=== PATIENT | male | born 1935 | race Caucasian/White ===

== ENCOUNTER 2017-05-10 04:55 | Inpatient (IN) | payer BC ==
--- NOTE | 2017-05-10 05:09 | PDOC ---
History of Present Illness - General Chief Complaint: Irregular Heart Beat Stated Complaint: IRREGULAR HEART BEAT Time Seen by Provider: 05/10/17 05:02 History Source: Patient - History of Present Illness Initial Comments: 05/10/17 05:28 81-year-old male with history of hypertension, A. fib complaining of irregular heartbeat at home yesterday lasting up to 15 minutes. Patient reports feeling dizzy and slightly nauseous at the time of the event. Patient noted similar symptoms this morning which prompted him to come to the emergency department. Patient is currently on aspirin and Plavix.Patient denies chest pain abdominal pain headache at this time. Past History - Past Medical History Allergies/Adverse Reactions: Allergies Allergy/AdvReac Type Severity Reaction Status Date / Time No Known Allergies Allergy Verified 05/10/17 05:11 Home Medications: Ambulatory Orders Clopidogrel Bisulfate [Plavix -] 75 mg PO DAILY 04/10/15 Glyburide/Metformin HCl [Glyburide-Metformin 5-500 mg] 1 each PO DAILY 05/10/17 Lisinopril/Hydrochlorothiazide [Lisinopril-Hctz 20-12.5 mg Tab] 1 each PO DAILY 05/10/17 Metoprolol Succinate [Toprol Xl] 50 mg PO DAILY 05/10/17 Sitagliptin Phosphate [Januvia] 25 mg PO DAILY 05/10/17 Anemia: No Asthma: No Cancer: Yes (PROSTATE CA '03 - SEED IMPLANT) Cardiac Disorders: Yes (A-fib) CVA: No COPD: No CHF: No Dementia: No Diabetes: Yes (NIDDM) GI Disorders: No Disorders: No HTN: Yes Hypercholesterolemia: No Liver Disease: No Seizures: No Thyroid Disease: No - Surgical History Abdominal Surgery: No Appendectomy: Yes Cardiac Surgery: Yes (CARDIAC CATH; ABLATION) Cholecystectomy: No Lung Surgery: No Neurologic Surgery: No - Immunization History Immunization Up to Date: No - Psycho/Social/Smoking Cessation Hx Anxiety: No Suicidal Ideation: No Smoking History: Never smoked Have you smoked in the past 12 months: No Hx Alcohol Use: Yes (WINE DAILY) Drug/Substance Use Hx: No Substance Use Type: None Hx Substance Use Treatment: No Cardiac Specific PMH - Complaint Specific PMHX Pacemaker: No Review of Systems - Review of Systems Able to Perform ROS?: Yes Is the patient limited Hebrew proficient: No HEENTM: No: Symptoms Reported, See HPI, Eye Pain, Blurred Vision, Tearing, Recent change in vision, Double Vision, Cataracts, Ear Pain, Ocular Prothesis, Ear Discharge, Nose Pain, Nose Congestion, Tinnitus, Nose Bleeding, Hearing Loss , Throat Pain, Throat Swelling, Mouth Pain, Dental Problems, Difficulty Swallowing, Mouth Swelling, Other Respiratory: No: Symptoms reported, See HPI, Cough, Orthopnea, Shortness of Breath, SOB with Exertion, SOB at Rest, Stridor, Wheezing, Productive cough, Hemoptysis, Other Cardiac (ROS): Yes: Irregular Heart Rate, Lightheadedness. No: Symptoms Reported, See HPI, Chest Pain, Edema, Palpitations, Syncope, Chest Tightness, Other ABD/GI: Yes: Nausea Musculoskeletal: No: Symptoms Reported, See HPI, Back Pain, Gout, Joint Pain, Joint Swelling, Muscle Pain, Muscle Weakness, Neck Pain, Joint Stiffness, Other Integumentary: No: Symptoms Reported, See HPI, Bruising, Change in Color, Change in Hair/Nails, Dryness, Erythema, Flushing, Lesions, Lumps, Pallor, Pruritus, Rash, Sweating, Other Neurological: Yes: Dizziness *Physical Exam - Vital Signs Last Vital Signs Temp Pulse Resp BP Pulse Ox 98.0 F 59 L 18 131/72 98 05/12/17 02:13 05/12/17 02:13 05/12/17 02:05/12/17 02:05/11/17 21:00 - Physical Exam General Appearance: Yes: Appropriately Dressed Respiratory/Chest: positive: Lungs Clear, Normal Breath Sounds Cardiovascular: positive: Regular Rhythm, Regular Rate, S1, S2. negative: Edema , Murmur Gastrointestinal/Abdominal: positive: Normal Bowel Sounds, Soft Musculoskeletal: positive: Normal Inspection Extremity: positive: Normal Capillary Refill, Normal Inspection, Normal Range of Motion Integumentary: positive: Normal Color, Dry, Warm Neurologic: positive: Fully Oriented, Alert, Normal Mood/Affect Heart Score/ECG Review - History History: Moderately suspicious - Electrocardiogram EKG: Non specific repolarization disturbance - Age Age: >/= 65 - Risk Factors Risk Factors Heart Score: Yes Hx Hypercholesterolemia, Yes Hx Hypertension, Yes Hx Diabetes Based on the list above the patient has:: >/=3 risk factors or Hx atherosclerotic disease - ECG Intrepretation Rhythm: Regular Rhythm Comment:: 05/10/17 05:32 sinus rhythm wfirst degree AV block: [address] abnormality ED Treatment Course - LABORATORY CBC & Chemistry Diagram: 05/11/17 05:35 05/11/17 21:45 - ADDITIONAL ORDERS Additional order review: 05/10/17 05:30 RBC 4.52 MCV 91.9 MCHC 34.1 RDW 13.8 MPV 6.7 L Neutrophils % 72.1 D Lymphocytes % 11.6 D Monocytes % 10.8 H Eosinophils % 4.4 Basophils % 1.1 - RADIOLOGY Radiology Studies Ordered: Category Date Time Status CHEST PA & LAT [RAD] Stat Radiology 05/10/17 05:11 Completed 05/10/17 05:34 - Medications Given in the ED: ED Medications Discontinued Medications Generic Name Dose Route Start Last Admin Trade Name Freq PRN Reason Stop Dose Admin Aspirin 162 mg 05/10/17 05:11 05/10/17 05:53 Asa - PO 05/10/17 05:12 162 mg ONCE ONE Administration Clopidogrel Bisulfate 75 mg 05/10/17 09:36 05/11/17 10:24 Plavix - PO 05/10/17 09:37 Not Given ONCE ONE Clopidogrel Bisulfate 75 mg 05/10/17 10:00 05/10/17 10:55 Plavix - PO 75 mg DAILY LAMONT Administration Sodium Chloride 1,000 mls @ 1,000 mls/hr 05/10/17 06:43 05/10/17 06:52 Normal Saline - IV 05/10/17 07:42 1,000 mls/hr ASDIR STA Administration Lisinopril 20 mg 05/10/17 09:36 05/11/17 10:24 Prinivil PO 05/10/17 09:37 Not Given ONCE ONE Magnesium Oxide 400 mg 05/10/17 06:44 05/10/17 06:53 Mag-Ox - PO 05/10/17 06:45 400 mg ONCE ONE Administration Magnesium Sulfate 2 gm 05/10/17 16:30 05/10/17 17:26 Magnesium Sulfate IVPB 05/10/17 16:31 2 gm ONCE ONE Administration Metoprolol Succinate 50 mg 05/10/17 10:00 05/10/17 10:55 Toprol Xl - PO 50 mg DAILY LAMONT Administration Progress Note - Progress Note Progress Note: A: irregular heart rate P: CBC CMP Cardiac EKG chest xray aspirin Medical Decision Making - Medical Decision Making 05/10/17 06:51 Patient to be admitted to telemetry for further management of care. Sodium: 127 BUN elevated. will give IVF. patient signed out to Dr. snyder for further management of care. *DC/Admit/Observation/Transfer Diagnosis at time of Disposition: Hyponatremia, Intermittent palpitations - Discharge Dispostion Admit: Yes - Referrals
[2017-05-10] MEDS ORDERED: ASPIRIN 81 MG CHEWABLE TABLETS PO ONE (05:11)
--- NOTE | 2017-05-10 05:43 | PDOC ---
*Physical Exam - Vital Signs Last Vital Signs Temp Pulse Resp BP Pulse Ox 98.7 F 85 14 164/91 97 05/10/17 05:11 05/10/17 05:11 05/10/17 05:11 05/10/17 05:11 05/10/17 05:11 ED Treatment Course - LABORATORY CBC & Chemistry Diagram: 05/10/17 05:30 05/10/17 13:30 Medical Decision Making - Medical Decision Making 05/10/17 05:43 agree with care from VIOLETTA Palumbo *DC/Admit/Observation/Transfer Diagnosis at time of Disposition: Hyponatremia, Intermittent palpitations
[2017-05-10 05:44] LABS: BASOPHIL 1.1 % (0-2.0); EOSINOPHIL 4.4 % (0-4.5); MCH 31.4 pg (25.7-33.7); MCHC 34.1 g/dl (32.0-35.9); MEAN CELL VOLUME 91.9 fl (80-96); MEAN PLT VOLUME 6.7 fl (7.5-11.1); NEUTROPHILS 72.1 % (42.8-82.8); PLATELET COUNT 259 K/MM3 (134-434); RDW 13.8 % (11.9-15.9); WHITE BLOOD COUNT 7.6 K/mm3 (4.0-10.0)
[2017-05-10] MEDS ORDERED: ASPIRIN 81 MG CHEWABLE TABLETS ONE (05:48)
[2017-05-10 05:54] LABS: INR 1.09 (0.82-1.09)
[2017-05-10 06:04] LABS: ANION GAP 9 (8-16); BILIRUBIN,TOTAL 0.6 mg/dL (0.2-1.0); CALCIUM 9.1 mg/dL (8.5-10.1); CO2 26 mmol/L (21-32); GLUCOSE,RANDOM 208 mg/dL (74-106); MAGNESIUM 1.7 mg/dL (1.8-2.4); SGOT/AST 12 U/L (15-37); SGPT/ALT 20 U/L (12-78); TOT PROT 7.1 g/dl (6.4-8.2)
[2017-05-10 06:07] LABS: ALK PHOS 92 U/L (45-117); CPK 143 IU/L (39-308); TROPONIN I < 0.02 ng/ml (0.00-0.05)
[2017-05-10 06:23] VITALS: BMI 23.3
[2017-05-10] MEDS ORDERED: SODIUM CHLORIDE 1,000 ML IV STA (06:43)
[2017-05-10] MEDS ORDERED: MAGNESIUM OXIDE 400 MG TABLET (FP) PO ONE (06:44)
[2017-05-10] MEDS ORDERED: MAGNESIUM OXIDE 400 MG TABLET (FP) ONE (06:45)
--- NOTE | 2017-05-10 09:35 | CON.CARD ---
Consult Consult Specialty:: Cardiology Reason for Consultation:: palpitations - History of Present Illness History of Present Illness: 81-year-old male with history of hypertension, A. fib complaining of irregular heartbeat at home yesterday lasting up to 15 minutes. Patient reports feeling dizzy and slightly nauseous at the time of the event. Patient noted similar symptoms this morning which prompted him to come to the emergency department. Patient is currently on aspirin and Plavix.Patient denies chest pain abdominal pain headache at this time. - History Source History Provided By: Patient, Medical Record Limitations to Obtaining History: No Limitations - Past Medical History Cardio/Vascular: Yes: AFIB (did not tolerate AC in the past - as per patient AC did not agree with him.), CAD (s/p pci stent 7 years ago at [facility]), HTN Rheumatology: Yes: Other (arthritis) Endocrine: Yes: Diabetes Mellitus - Past Surgical History Past Surgical History: Yes: Hernia Repair - Alcohol/Substance Use Hx Alcohol Use: Yes (WINE DAILY) History of Substance Use: reports: None - Smoking History Smoking history: Never smoked Have you smoked in the past 12 months: No - Social History 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 [employer] Home Medications - Allergies Allergies/Adverse Reactions: Allergies Allergy/AdvReac Type Severity Reaction Status Date / Time No Known Allergies Allergy Verified 05/10/17 05:11 - Home Medications Home Medications: Ambulatory Orders Clopidogrel Bisulfate [Plavix -] 75 mg PO DAILY 04/10/15 Glyburide/Metformin HCl [Glyburide-Metformin 5-500 mg] 1 each PO DAILY 05/10/17 Lisinopril/Hydrochlorothiazide [Lisinopril-Hctz 20-12.5 mg Tab] 1 each PO DAILY 05/10/17 Metoprolol Succinate [Toprol Xl] 50 mg PO DAILY 05/10/17 Sitagliptin Phosphate [Januvia] 25 mg PO DAILY 05/10/17 Family Disease History - Family Disease History Family Disease History: Diabetes: Mother, Heart Disease: Mother, Other: Father ( old age) Review of Systems - Review of Systems Constitutional: reports: No Symptoms Eyes: reports: No Symptoms HENT: reports: No Symptoms Neck: reports: No Symptoms Cardiovascular: reports: Palpitations Gastrointestinal: reports: No Symptoms Genitourinary: reports: No Symptoms Breasts: reports: No Symptoms Reported Musculoskeletal: reports: No Symptoms Integumentary: reports: No Symptoms Neurological: reports: No Symptoms Endocrine: reports: No Symptoms Hematology/Lymphatic: reports: No Symptoms Psychiatric: reports: No Symptoms Vital Signs: Vital Signs Temperature 98.7 F 05/10/17 05:11 Pulse Rate 60 05/10/17 07:44 Respiratory Rate 18 05/10/17 07:44 Blood Pressure 138/86 05/10/17 07:44 O2 Sat by Pulse Oximetry (%) 99 05/10/17 07:44 Constitutional: Yes: Well Nourished, No Distress, Calm Eyes: Yes: WNL, Conjunctiva Clear, EOM Intact HENT: Yes: WNL, Atraumatic, Normocephalic Neck: Yes: WNL, Supple, Trachea Midline Respiratory: Yes: WNL, Regular, CTA Bilaterally Gastrointestinal: Yes: WNL, Normal Bowel Sounds Renal/: Yes: WNL Cardiovascular: Yes: WNL, Regular Rate and Rhythm Musculoskeletal: Yes: WNL Extremities: Yes: WNL Integumentary: Yes: WNL Neurological: Yes: WNL, Alert, Oriented ...Motor Strength: WNL Psychiatric: Yes: WNL, Alert, Oriented - Other Data Labs, Other Data: INR, PTT INR 1.09 (0.82-1.09) 05/10/17 05:30 Laboratory Tests 05/10/17 05/10/17 05/10/17 05:30 05:30 05:30 WBC 7.6 RBC 4.52 Hgb 14.2 D Hct 41.5 MCV 91.9 MCH 31.4 MCHC 34.1 RDW 13.8 Plt Count 259 MPV 6.7 L Neutrophils % 72.1 D Lymphocytes % 11.6 D Monocytes % 10.8 H Eosinophils % 4.4 Basophils % 1.1 INR 1.09 Sodium 126 L Potassium 4.6 Chloride 91 L Carbon Dioxide 26 Anion Gap 9 BUN 26 H D Creatinine 1.0 Creat Clearance w eGFR > 60 Random Glucose 208 H D Calcium 9.1 Magnesium 1.7 L Total Bilirubin 0.6 AST 12 L ALT 20 Alkaline Phosphatase 92 D Creatine Kinase 143 Troponin I < 0.02 Total Protein 7.1 Albumin 4.0 Imaging - Results Chest X-ray: Image Reviewed (no i/e) EKG: Image Reviewed (sr ldea) Problem List - Problems (1) Hyponatremia Code(s): E87.1 - HYPO-OSMOLALITY AND HYPONATREMIA (2) Intermittent palpitations Code(s): R00.2 - PALPITATIONS (3) RIAZ (acute kidney injury) Code(s): N17.9 - ACUTE KIDNEY FAILURE, UNSPECIFIED (4) Atrial fibrillation Code(s): I48.91 - UNSPECIFIED ATRIAL FIBRILLATION (5) Closed head injury Code(s): S09.90XA - UNSPECIFIED INJURY OF HEAD, INITIAL ENCOUNTER Qualifiers: Encounter type: initial encounter Qualified Code(s): S09.90XA - Unspecified injury of head, initial encounter (6) Encounter for staple removal Code(s): Z48.02 - ENCOUNTER FOR REMOVAL OF SUTURES (7) Fall Code(s): W19.XXXA - UNSPECIFIED FALL, INITIAL ENCOUNTER Qualifiers: Encounter type: initial encounter Qualified Code(s): W19.XXXA - Unspecified fall, initial encounter (8) HTN (hypertension) Code(s): I10 - ESSENTIAL (PRIMARY) HYPERTENSION (9) Low back pain Code(s): M54.5 - LOW BACK PAIN Qualifiers: Chronicity: acute Back pain laterality: midline (10) Palpitations Code(s): R00.2 - PALPITATIONS (11) Polycythemia Code(s): D75.1 - SECONDARY POLYCYTHEMIA Assessment/Plan palpitations paf refusing ac -understands risks of cva ashd hyponatremia htn hld plan telemetry hyponatremia w/u mibi st when stable keep ldl below 70
[2017-05-10] MEDS ORDERED: LISINOPRIL 20 MG TABLET (FP) PO ONE (09:36)
[2017-05-10] MEDS ORDERED: CLOPIDOGREL BISULFATE 75 MG TABLET (FP) PO ONE (09:36)
[2017-05-10] MEDS ORDERED: CLOPIDOGREL BISULFATE 75 MG TABLET (FP) PO SCH (10:00)
[2017-05-10] MEDS ORDERED: METOPROLOL SUCCINATE 50 MG TAB.SR.24H (FP) PO SCH (10:00)
--- NOTE | 2017-05-10 10:37 | EKG ---
Test Reason : Blood Pressure : / mmHG Vent. Rate : 086 BPM Atrial Rate : 086 BPM P-R Int : 212 ms QRS Dur : 096 ms QT Int : 366 ms P-R-T Axes : 030 -32 056 degrees QTc Int : 437 ms SINUS RHYTHM WITH 1ST DEGREE A-V BLOCK LEFT AXIS DEVIATION NONSPECIFIC ST ABNORMALITY ABNORMAL ECG WHEN COMPARED WITH ECG OF 10-APR-2015 18:04, SINUS RHYTHM HAS REPLACED ATRIAL FLUTTER Confirmed by SHARYN SAMS, YONG ([id number]) on 05/10/2017 10:36:58 AM Referred By: Confirmed By:YONG COLES MD
[2017-05-10] MEDS: LISINOPRIL 20 MG TABLET (FP) PO SCH (10:55)
[2017-05-10] MEDS ORDERED: INSULIN REGULAR HUMAN 100 UNITS/ML *VIAL ONE (10:56)
[2017-05-10] MEDS: INSULIN SLIDING SCALE (NOVOLOG) 1 VIAL SQ SCH ×3 (11:07→20:59)
[2017-05-10] MEDS: SODIUM CHLORIDE 1,000 ML IV SCH (11:07)
--- NOTE | 2017-05-10 11:30 | HP ---
CHIEF COMPLAINT: Irregular heart beat PCP: Dr Perez Lino Carpenter Helper Maintenance: Dr Berman HISTORY OF PRESENT ILLNESS: Patient is an 81 year old male with PMHx of afib s/p cardiac ablation, and stent placement, HTN, DM presenting with a 2 day history of irregular heart beat. Patient has been non compliant on ASA , prescribed in combination with plavix because he has petechiael hemorrhages and easy bruising. Patient reported intermittent heart beats 2 days ago that he described as 10 beats with interrupted pauses, that lasted for about 15mins which reversed to regular after he took two doses of ASA 81mg. A day ago, he had similar symptoms, which lasted for longer periods for which he took a total of 5 tablets of ASA. There is no associated cough, no SOB, no chest pain. No history of syncope, fall or seizures. The irregular heartbeats are associated with "giving out" of of his legs. No facial droop, loss of vision or weakness of any side of his body. Patient presented this am because of fear of deterioration of the symptoms. ER course was notable for: (1)EKG-Showed sinus rythm and 1st degree heart block (2)CXR- Showed no evidence of active pulmonary disease (3)BMP, P, Mg- Showed hyponatremia at 126, Mg-1.7, for which he received a bolus of IVF N/saline and Mg oxide 400 mg PO stat 4) Patient also received ASA 81 mg PO stat, 5) Troponins on admission were negative- Recent Travel: PAST MEDICAL HISTORY: HTN, Afib, DM, Prostate cancer PAST SURGICAL HISTORY:S/p Prostate cancer seed implant 2002, R inguinal hernia repair with mesh- 2009, cardiac catheter with ablation and stent Social History: Smoking: No Alcohol: Wine Drugs: Family History: Allergies No Known Allergies Allergy (Verified 05/10/17 05:11) HOME MEDICATIONS: Home Medications Medication Instructions Recorded Clopidogrel Bisulfate [Plavix -] 75 mg PO DAILY 04/10/15 Glyburide/Metformin HCl 1 each PO DAILY 05/10/17 [Glyburide-Metformin 5-500 mg] Lisinopril/Hydrochlorothiazide 1 each PO DAILY 05/10/17 [Lisinopril-Hctz 20-12.5 mg Tab] Metoprolol Succinate [Toprol Xl] 50 mg PO DAILY 05/10/17 Sitagliptin Phosphate [Januvia] 25 mg PO DAILY 05/10/17 REVIEW OF SYSTEMS CONSTITUTIONAL: No fever, chills, diaphoresis, generalized weakness, malaise, loss of appetite, weight change HEENT: No rhinorrhea, nasal congestion, throat pain, throat swelling, difficulty swallowing, mouth swelling, ear pain, eye pain, visual changes CARDIOVASCULAR: No chest pain, syncope, palpitations, patient has irregular heart rate, no lightheadedness, no peripheral edema RESPIRATORY: Absent: No cough, shortness of breath, dyspnea with exertion, orthopnea, wheezing, stridor, hemoptysis GASTROINTESTINAL: No abdominal pain, abdomen has always been full, no nausea, vomiting, diarrhea, constipation, melena, hematochezia GENITOURINARY: No dysuria, frequency, urgency, hesitancy, hematuria, flank pain, genital pain MUSCULOSKELETAL: Patient complains of a trigger finger, no joint swelling, back spasms on the right, neck pain SKIN: Absent: rash, itching, pallor HEMATOLOGIC/IMMUNOLOGIC: Patient reports easy bleeding- petechiae when he takes ASA with his plavix, easy bruising- has bruise over abdomen ENDOCRINE: Absent: unexplained weight gain, unexplained weight loss, heat intolerance, cold intolerance NEUROLOGIC: No headache, focal weakness or paresthesias, dizziness, unsteady gait, seizure, mental status changes, bladder or bowel incontinence PSYCHIATRIC: Absent: anxiety, depression, suicidal or homicidal ideation, hallucinations. PHYSICAL EXAMINATION Vital Signs - 24 hr 05/10/17 05/10/17 07:42 07:44 Pulse Rate [ 60 Apical] Respiratory 18 Rate Blood Pressure 138/86 [Right Arm] O2 Sat by Pulse 99 99 Oximetry (%) GENERAL: Awake, alert, and fully oriented, in no acute respiratory distress. HEAD: Normal with no signs of trauma. EYES: Pupils equal, round and reactive to light, extraocular movements intact, sclera anicteric, conjunctiva clear. No lid lag. EARS, NOSE, THROAT: Ears normal, nares patent, moist mucous membranes. NECK: supple, no JVD. LUNGS: Breath sounds equal, clear to auscultation bilaterally. No wheezes, and no crackles. No accessory muscle use. HEART: Irregular rate and rhythm, normal S1 and S2 without murmur, rub or gallop. ABDOMEN: Soft, nontender, full, R hypochondrial scar, hemangiomas scattered over abdomen, normoactive bowel sounds, nontympanitic, organs difficult to palpate. MUSCULOSKELETAL: Normal range of motion at all joints. No bony deformities or tenderness. No CVA tenderness. UPPER EXTREMITIES: 2+ pulses, warm, well-perfused. No cyanosis. No clubbing. No peripheral edema. LOWER EXTREMITIES: 2+ pulses, warm, well-perfused. No calf tenderness. No peripheral edema. NEUROLOGICAL: Oriented X3, absent facial droop. Muscle strength 5/5 globally, normal tone, reflexes 2+. Normal speech. Gait not observed PSYCHIATRIC: Cooperative. Good eye contact. Appropriate mood and affect. 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 Mobile, soft, not attached to overlying skin or underlying structures. Warm, dry, hemangiomas over abdomen and some skin tags. ASSESSMENT/PLAN: # Afib: Past hx of afib with ablation and stent placement, non-complaint on ASA Admit to telemetry Continous cardiac monitoring Continue plavix 75mg dly ASA 81 mg dly Metoprolol 50mg PO XL EKG ECHO, TSH BMP, Mg, P CBC troponins UA/ Urine culture LFT #Hyponatremia Na -126 at ER Received 1 bolus of N/saline Continue Nsaline @75mls/hr Repeated BMP at 2.00pm showed Na -129 Restrict free oral fluids to 1L a day Repeat Na at 10.00pm and reevaluate #Hypomagnesemia Received Magnesium Oxide 400mg PO stat Repeat Mg- still 1.7 Ivpb Mg So4 2g given stat Repeat Mg at 10.00pm and reevaluate # DM Diabetic diet ISS # HTN Cont lisinopril 20mg dly Hold HCTZ- due to Hyponatremia Cont Metoprolol 50 mg XL dly Visit type - Emergency Visit Emergency Visit: No - New Patient This patient is new to me today: Yes Date on this admission: 05/10/17 - Critical Care Critical Care patient: No
--- NOTE | 2017-05-10 12:09 | PN ---
Teaching Attending Note Name of Resident: Paula Lugo ATTENDING PHYSICIAN STATEMENT I saw and evaluated the patient. I reviewed the resident's note and discussed the case with the resident. I agree with the resident's findings and plan as documented. SUBJECTIVE: Patient is comfortable, denies any chest pain, came in since feeling irregular heart beat. He has hx of Afib where he had an ablation procedure. OBJECTIVE: Vital Signs Temperature 98.7 F 05/10/17 05:11 Pulse Rate 60 05/10/17 07:44 Respiratory Rate 18 05/10/17 07:44 Blood Pressure 138/86 05/10/17 07:44 O2 Sat by Pulse Oximetry (%) 99 05/10/17 07:44 CBCD WBC 7.6 K/mm3 (4.0-10.0) 05/10/17 05:30 RBC 4.52 M/mm3 (4.00-5.60) 05/10/17 05:30 Hgb 14.2 GM/dL (11.7-16.9) D 05/10/17 05:30 Hct 41.5 % (35.4-49) 05/10/17 05:30 MCV 91.9 fl (80-96) 05/10/17 05:30 MCHC 34.1 g/dl (32.0-35.9) 05/10/17 05:30 RDW 13.8 % (11.9-15.9) 05/10/17 05:30 Plt Count 259 K/MM3 (134-434) 05/10/17 05:30 MPV 6.7 fl (7.5-11.1) L 05/10/17 05:30 CMP Sodium 126 mmol/L (136-145) L 05/10/17 05:30 Potassium 4.6 mmol/L (3.5-5.1) 05/10/17 05:30 Chloride 91 mmol/L (98-107) L 05/10/17 05:30 Carbon Dioxide 26 mmol/L (21-32) 05/10/17 05:30 Anion Gap 9 (8-16) 05/10/17 05:30 BUN 26 mg/dL (7-18) H D 05/10/17 05:30 Creatinine 1.0 mg/dL (0.7-1.3) 05/10/17 05:30 Creat Clearance w eGFR > 60 (>60) 05/10/17 05:30 Random Glucose 208 mg/dL (74-106) H D 05/10/17 05:30 Calcium 9.1 mg/dL (8.5-10.1) 05/10/17 05:30 Total Bilirubin 0.6 mg/dL (0.2-1.0) 05/10/17 05:30 AST 12 U/L (15-37) L 05/10/17 05:30 ALT 20 U/L (12-78) 05/10/17 05:30 Alkaline Phosphatase 92 U/L (45-117) D 05/10/17 05:30 Total Protein 7.1 g/dl (6.4-8.2) 05/10/17 05:30 Albumin 4.0 g/dl (3.4-5.0) 05/10/17 05:30 CARDIAC ENZYMES Creatine Kinase 143 IU/L (39-308) 05/10/17 05:30 Troponin I < 0.02 ng/ml (0.00-0.05) 05/10/17 05:30 Current Medications Generic Name Dose Route Start Last Admin Trade Name Freq PRN Reason Stop Dose Admin Clopidogrel Bisulfate 75 mg 05/11/17 10:00 Plavix - PO DAILY [facility] Sodium Chloride 1,000 mls @ 75 mls/hr 05/10/17 10:45 05/10/17 11:07 Normal Saline - IV 75 mls/hr ASDIR LAMONT Administration Insulin Aspart 1 vial 05/10/17 11:00 05/10/17 11:07 Novolog Vial Sliding Scale - SQ 2 units ACHS LAMONT Administration Protocol Lisinopril 20 mg 05/10/17 10:00 05/10/17 10:55 Prinivil PO 20 mg DAILY LAMONT Administration Metoprolol Succinate 50 mg 05/10/17 10:00 05/10/17 10:55 Toprol Xl - PO 50 mg DAILY LAMONT Administration Home Medications Medication Instructions Recorded Clopidogrel Bisulfate [Plavix -] 75 mg PO DAILY 04/10/15 Glyburide/Metformin HCl 1 each PO DAILY 05/10/17 [Glyburide-Metformin 5-500 mg] Lisinopril/Hydrochlorothiazide 1 each PO DAILY 05/10/17 [Lisinopril-Hctz 20-12.5 mg Tab] Metoprolol Succinate [Toprol Xl] 50 mg PO DAILY 05/10/17 Sitagliptin Phosphate [Januvia] 25 mg PO DAILY 05/10/17 PE: nice gentleman, AAOx3 CVS: S1S2 positive, irregularly irregular chest CTA bl Abdomen; large abdomen, positive for BS ext: no edema, no swelling or cyanosis, pulses are positive ASSESSMENT AND PLAN: Patient is an 81 year old male with PMHx of afib s/p cardiac ablation, and stent placement around 7 years ago on Plavix and Aspirin( on and off) since gets bleeding due to aspirin and gets tinnitis , HTN, DM presenting with a 2 day history of irregular heart beat. #Acute Hyponatremia with level of 126 , will hold his Hctz on IVF 0.9NS # Afib s/p Ablation rate controlled now will place the patient in Tele for further monitoring, cardio consult , will check TSH, Ft4, also CE q6 x 3 Ekg in am # Hx of CAd continue Plavix and 81mg aspirin #Hypomagnesemia replete with one iv mag rider # T2 DM, diabetic diet, ISS # HTN continue lisinopril 20mg dly; hold ld HCTZ- due to Hyponatremia, cont Metoprolol 50 mg XL dly DVT Px: Heparin sq
[2017-05-10 14:41] LABS: ANION GAP 10 (8-16); CALCIUM 8.7 mg/dL (8.5-10.1); CO2 26 mmol/L (21-32); GLUCOSE,RANDOM 140 mg/dL (74-106); MAGNESIUM 1.7 mg/dL (1.8-2.4); PHOSPHOROUS 3.2 mg/dL (2.5-4.9)
[2017-05-10 14:47] LABS: CREATININE 0.8 mg/dL (0.7-1.3); TROPONIN I < 0.02 ng/ml (0.00-0.05)
[2017-05-10 15:54] LABS: URINE APPEARANCE CLEAR; URINE BILIRUBIN NEGATIVE (NEGATIVE); URINE BLOOD NEGATIVE (NEGATIVE); URINE COLOR STRAW; URINE GLUCOSE (UA) NEGATIVE (NEGATIVE); URINE KETONE NEGATIVE (NEGATIVE); URINE LEUK ESTERASE NEGATIVE (NEGATIVE); URINE NITRITE NEGATIVE (NEGATIVE); URINE PROTEIN NEGATIVE (NEGATIVE); URINE UROBILINOGEN NEGATIVE mg/dL (0.2-1.0)
[2017-05-10] MEDS ORDERED: MAGNESIUM SULF 50% (8.12 MEQ/2 ML-1 GM VIAL) IVPB ONE (16:30)
[2017-05-10] MEDS ORDERED: INSULIN (NOVOLOG) ASPART 100 UNITS/ML 10ML VIAL ONE ×2 (20:52→21:32)
[2017-05-10 21:22] LABS: ANION GAP 5 (8-16); CALCIUM 8.7 mg/dL (8.5-10.1); CO2 29 mmol/L (21-32); GLUCOSE,RANDOM 195 mg/dL (74-106)
[2017-05-11] MEDS: INSULIN SLIDING SCALE (NOVOLOG) 1 VIAL SQ SCH ×4 (06:11→21:25)
[2017-05-11 07:30] LABS: BASOPHIL 1.2 % (0-2.0); EOSINOPHIL 11.9 % (0-4.5); MCH 31.2 pg (25.7-33.7); MCHC 34.2 g/dl (32.0-35.9); MEAN CELL VOLUME 91.2 fl (80-96); MEAN PLT VOLUME 6.7 fl (7.5-11.1); NEUTROPHILS 49.9 % (42.8-82.8); PLATELET COUNT 231 K/MM3 (134-434); RDW 13.6 % (11.9-15.9); WHITE BLOOD COUNT 6.1 K/mm3 (4.0-10.0)
[2017-05-11 08:13] LABS: ALBUMIN 3.2 g/dl (3.4-5.0); ALK PHOS 75 U/L (45-117); ANION GAP 6 (8-16); BILIRUBIN,TOTAL 0.6 mg/dL (0.2-1.0); CALCIUM 8.2 mg/dL (8.5-10.1); CO2 27 mmol/L (21-32); CREATININE 0.8 mg/dL (0.7-1.3); GLUCOSE,RANDOM 148 mg/dL (74-106); SGOT/AST 12 U/L (15-37); SGPT/ALT 15 U/L (12-78); THYROID STIMULATING HORMONE 0.97 uIU/ml (0.358-3.74); TOT PROT 5.8 g/dl (6.4-8.2)
[2017-05-11 08:19] LABS: CHOLESTEROL 145 mg/dL (50-200)
--- NOTE | 2017-05-11 09:22 | PN ---
Progress Note, Physician Chief Complaint: Pt says his neck hurts, and he feels nuseous. He denies chest pain or palpitations. History of Present Illness: 81-year-old male with history of hypertension, A. fib complaining of irregular heartbeat at home yesterday lasting up to 15 minutes. Patient reports feeling dizzy and slightly nauseous at the time of the event. Patient noted similar symptoms this morning which prompted him to come to the emergency department. Patient is currently on aspirin and Plavix.Patient denies chest pain abdominal pain headache at this time. - Current Medication List Current Medications: Active Medications Aspirin (Asa -) 81 mg PO DAILY [facility] Clopidogrel Bisulfate (Plavix -) 75 mg PO DAILY [facility] Heparin Sodium (Porcine) (Heparin -) 5,000 unit SQ TID [facility] Sodium Chloride (Normal Saline -) 1,000 mls @ 75 mls/hr IV ASDIR [facility] Last Admin: 05/10/17 11:07 Dose: 75 mls/hr Insulin Aspart (Novolog Vial Sliding Scale -) 1 vial SQ ACHS [facility] PRN Reason: Protocol Last Admin: 05/11/17 06:11 Dose: 2 units Lisinopril (Prinivil) 20 mg PO DAILY [facility] Last Admin: 05/10/17 10:55 Dose: 20 mg - Objective Vital Signs: Vital Signs Temperature 97.4 F L 05/11/17 02:20 Pulse Rate 57 L 05/11/17 02:20 Respiratory Rate 18 05/11/17 02:20 Blood Pressure 113/68 05/11/17 02:20 O2 Sat by Pulse Oximetry (%) 99 05/10/17 21:00 Labs: CBC, BMP 05/11/17 05:35 05/11/17 05:35 INR, PTT INR 1.09 (0.82-1.09) 05/10/17 05:30 Problem List - Problems (1) Hyponatremia Code(s): E87.1 - HYPO-OSMOLALITY AND HYPONATREMIA (2) Intermittent palpitations Code(s): R00.2 - PALPITATIONS (3) RIAZ (acute kidney injury) Code(s): N17.9 - ACUTE KIDNEY FAILURE, UNSPECIFIED (4) Atrial fibrillation Assessment/Plan: Pt says he was once on rivaroxaban, but had bleeding ("drops of blood"). The risks of not being on warfarin or a NOAC were discussed in detail with him today. Code(s): I48.91 - UNSPECIFIED ATRIAL FIBRILLATION (5) HTN (hypertension) Code(s): I10 - ESSENTIAL (PRIMARY) HYPERTENSION (6) Low back pain Code(s): M54.5 - LOW BACK PAIN Qualifiers: Chronicity: acute Back pain laterality: midline (7) Atypical chest pain Assessment/Plan: TNI < 0.02 x 3. EKG: NSR; 1st degree AV block. Pt refuses stress test, despite being told in detail of the potential consequences in not having the test. Code(s): R07.89 - OTHER CHEST PAIN
[2017-05-11] MEDS ORDERED: METOPROLOL SUCCINATE 25 MG TAB.SR.24H (FP) PO SCH (10:00)
[2017-05-11] MEDS: LISINOPRIL 20 MG TABLET (FP) PO SCH (10:14)
[2017-05-11] MEDS: CLOPIDOGREL BISULFATE 75 MG TABLET (FP) PO SCH (10:14)
[2017-05-11] MEDS: ASPIRIN 81 MG CHEWABLE TABLETS PO SCH (10:14)
[2017-05-11] MEDS: SODIUM CHLORIDE 1,000 ML IV SCH (10:15)
--- NOTE | 2017-05-11 11:01 | PN ---
Physical Exam: SUBJECTIVE: Patient seen and examined No complaint this am. Was eating. OBJECTIVE: Vital Signs Period Temp Pulse Resp BP Sys/Byrne Pulse Ox Last 24 Hr 97.4 F-98.4 F 57-69 14-18 113-158/65-96 99-99 GENERAL: Awake, alert, and fully oriented, in no acute respiratory distress. HEAD: Normal with no signs of trauma. EYES: Pupils equal, round and reactive to light, extraocular movements intact, sclera anicteric, conjunctiva clear. No lid lag. EARS, NOSE, THROAT: Ears normal, nares patent, moist mucous membranes. NECK: supple, no JVD. LUNGS: Breath sounds equal, clear to auscultation bilaterally. No wheezes, and no crackles. No accessory muscle use. HEART: Irregular rate and rhythm, normal S1 and S2 without murmur, rub or gallop. ABDOMEN: Soft, nontender, full, R hypochondrial scar, hemangiomas scattered over abdomen, normoactive bowel sounds, nontympanitic, organs difficult to palpate. MUSCULOSKELETAL: Normal range of motion at all joints. No bony deformities or tenderness. No CVA tenderness. UPPER EXTREMITIES: 2+ pulses, warm, well-perfused. No cyanosis. No clubbing. No peripheral edema. LOWER EXTREMITIES: 2+ pulses, warm, well-perfused. No calf tenderness. No peripheral edema. NEUROLOGICAL: Oriented X3, absent facial droop. Muscle strength 5/5 globally, normal tone, reflexes 2+. Normal speech. Gait not observed PSYCHIATRIC: Cooperative. Good eye contact. Appropriate mood and affect. 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 Mobile, soft, not attached to overlying skin or underlying structures. Warm, dry, hemangiomas over abdomen and some skin tags. Laboratory Results - last 24 hr ECHO: Regional wall motion abnormality cannot be excluded due to limited visualization. Mild MR, mild TR, normal ventricular systolic pressure, mild aortic regurg, mild aortic root dilation. 05/10/17 05/10/17 05/10/17 10:53 13:30 13:30 WBC RBC Hgb Hct MCV MCH MCHC RDW Plt Count MPV Neutrophils % Lymphocytes % Monocytes % Eosinophils % Basophils % Sodium 129 L Potassium 4.6 Chloride 93 L Carbon Dioxide 26 Anion Gap 10 BUN 19 H D Creatinine 0.8 Creat Clearance w eGFR POC Glucometer [phone] Random Glucose 140 H D Calcium 8.7 Phosphorus 3.2 Magnesium 1.7 L Total Bilirubin AST ALT Alkaline Phosphatase Troponin I < 0.02 Cancelled Total Protein Albumin Triglycerides Cholesterol Total LDL Cholesterol HDL Cholesterol TSH Urine Color Urine Appearance Urine pH Ur Specific [place] Urine Protein Urine Glucose (UA) Urine Ketones Urine Blood Urine Nitrite Urine Bilirubin Urine Urobilinogen 05/10/17 05/10/17 05/10/17 15:00 17:23 20:30 WBC RBC Hgb Hct MCV MCH MCHC RDW Plt Count MPV Neutrophils % Lymphocytes % Monocytes % Eosinophils % Basophils % Sodium Potassium Chloride Carbon Dioxide Anion Gap BUN Creatinine Creat Clearance w eGFR POC Glucometer 122 Random Glucose Calcium Phosphorus Magnesium Total Bilirubin AST ALT Alkaline Phosphatase Troponin I < 0.02 Total Protein Albumin Triglycerides Cholesterol Total LDL Cholesterol HDL Cholesterol TSH Urine Color Straw Urine Appearance Clear Urine pH 7.0 Ur Specific [place] 1.015 Urine Protein Negative Urine Glucose (UA) Negative Urine Ketones Negative Urine Blood Negative Urine Nitrite Negative Urine Bilirubin Negative Urine Urobilinogen Negative 05/10/17 05/10/17 05/10/17 20:30 20:30 20:49 WBC RBC Hgb Hct MCV MCH MCHC RDW Plt Count MPV Neutrophils % Lymphocytes % Monocytes % Eosinophils % Basophils % Sodium 129 L Potassium 4.3 Chloride 95 L Carbon Dioxide 29 Anion Gap 5 L BUN 22 H Creatinine 1.0 D Creat Clearance w eGFR POC Glucometer 209 Random Glucose 195 H D Calcium 8.7 Phosphorus Magnesium 2.2 D Total Bilirubin AST ALT Alkaline Phosphatase Troponin I Total Protein Albumin Triglycerides Cholesterol Total LDL Cholesterol HDL Cholesterol TSH Urine Color Urine Appearance Urine pH Ur Specific [place] Urine Protein Urine Glucose (UA) Urine Ketones Urine Blood Urine Nitrite Urine Bilirubin Urine Urobilinogen 05/11/17 05/11/17 05/11/17 05:35 05:35 05:35 WBC 6.1 RBC 4.21 Hgb 13.1 Hct 38.3 MCV 91.2 MCH 31.2 MCHC 34.2 RDW 13.6 Plt Count 231 MPV 6.7 L Neutrophils % 49.9 D Lymphocytes % 22.3 D Monocytes % 14.7 H Eosinophils % 11.9 H D Basophils % 1.2 Sodium 132 L Potassium 4.4 Chloride 99 Carbon Dioxide 27 Anion Gap 6 L BUN 19 H Creatinine 0.8 Creat Clearance w eGFR > 60 POC Glucometer Random Glucose 148 H D Calcium 8.2 L Phosphorus Magnesium Total Bilirubin 0.6 AST 12 L ALT 15 D Alkaline Phosphatase 75 Troponin I Total Protein 5.8 L Albumin 3.2 L Triglycerides 53 D Cancelled Cholesterol 145 Cancelled Total LDL Cholesterol 47 D Cancelled HDL Cholesterol 62 Cancelled TSH 0.97 Urine Color Urine Appearance Urine pH Ur Specific [place] Urine Protein Urine Glucose (UA) Urine Ketones Urine Blood Urine Nitrite Urine Bilirubin Urine Urobilinogen 05/11/17 05/11/17 05:35 06:05 WBC RBC Hgb Hct MCV MCH MCHC RDW Plt Count MPV Neutrophils % Lymphocytes % Monocytes % Eosinophils % Basophils % Sodium Potassium Chloride Carbon Dioxide Anion Gap BUN Creatinine Creat Clearance w eGFR POC Glucometer 157 Random Glucose Calcium Phosphorus Magnesium Cancelled Total Bilirubin AST ALT Alkaline Phosphatase Troponin I Total Protein Albumin Triglycerides Cholesterol Total LDL Cholesterol HDL Cholesterol TSH Urine Color Urine Appearance Urine pH Ur Specific [place] Urine Protein Urine Glucose (UA) Urine Ketones Urine Blood Urine Nitrite Urine Bilirubin Urine Urobilinogen Active Medications Generic Name Dose Route Start Last Admin Trade Name Freq PRN Reason Stop Dose Admin Aspirin 81 mg 05/11/17 10:00 05/11/17 10:14 Asa - PO 81 mg DAILY [facility] Administration Clopidogrel Bisulfate 75 mg 05/11/17 10:00 05/11/17 10:14 Plavix - PO 75 mg DAILY [facility] Administration Heparin Sodium (Porcine) 5,000 unit 05/11/17 14:00 Heparin - SQ TID [facility] Sodium Chloride 1,000 mls @ 75 mls/hr 05/10/17 10:45 05/11/17 10:15 Normal Saline - IV 75 mls/hr ASDIR [facility] Administration Insulin Aspart 1 vial 05/10/17 11:00 05/11/17 06:11 Novolog Vial Sliding Scale - SQ 2 units ACHS [facility] Administration Protocol Lisinopril 20 mg 05/10/17 10:00 05/11/17 10:14 Prinivil PO 20 mg DAILY [facility] Administration Metoprolol Succinate 25 mg 05/11/17 10:00 05/11/17 10:14 Toprol Xl - PO 25 mg DAILY [facility] Administration ASSESSMENT/PLAN: # Afib: Past hx of afib with ablation and stent placement, non-complaint on ASA On telemetry- had some bradycardia overnight Continous cardiac monitoring Reduce Metoprolol to 25mg PO XL Continue plavix 75mg dly ASA 81 mg dly ECHO- noted above TSH- within normal limits CBC- normal troponins- normal UA- negative Urine culture LFT-no elevated transaminases EKG BMP #Hyponatremia Na -improved to 132 this morning Continue N/saline @75mls/hr Repeat BMP at 3.00pm To likely stop N/saline this evening Restrict free oral fluids to 1L a day Repeat BMP and reevaluate with results #Hypomagnesemia- resolved # DM Diabetic diet ISS # HTN Cont lisinopril 20mg dly Hold HCTZ- due to Hyponatremia Reduce Metoprolol 25 mg XL dly (bradycardia) Visit type - Emergency Visit Emergency Visit: Yes ED Registration Date: 05/10/17 Care time: The patient presented to the Emergency Department on the above date and was hospitalized for further evaluation of their emergent condition. - New Patient This patient is new to me today: No - Critical Care Critical Care patient: No - Discharge Referral Referred to [facility] No
[2017-05-11 11:32] LABS: MAGNESIUM 2.1 mg/dL (1.8-2.4)
[2017-05-11] MEDS: HEPARIN NA (PORCINE) 5,000 UNITS/ML 1ML VIAL SQ SCH ×2 (15:10→21:24)
[2017-05-11 16:05] LABS: ANION GAP 10 (8-16); CALCIUM 8.3 mg/dL (8.5-10.1); CO2 26 mmol/L (21-32); GLUCOSE,RANDOM 198 mg/dL (74-106)
--- NOTE | 2017-05-11 16:20 | PN ---
Teaching Attending Note Name of Resident: Paula Lugo ATTENDING PHYSICIAN STATEMENT I saw and evaluated the patient. I reviewed the resident's note and discussed the case with the resident. I agree with the resident's findings and plan as documented. SUBJECTIVE: Patient is feeling better today , no further palpitations, or shortness of breath. OBJECTIVE: Vital Signs Temperature 98.4 F 05/11/17 15:51 Pulse Rate 72 05/11/17 15:51 Respiratory Rate 18 05/11/17 02:20 Blood Pressure 144/83 05/11/17 15:51 O2 Sat by Pulse Oximetry (%) 99 05/10/17 21:00 CBCD WBC 6.1 K/mm3 (4.0-10.0) 05/11/17 05:35 RBC 4.21 M/mm3 (4.00-5.60) 05/11/17 05:35 Hgb 13.1 GM/dL (11.7-16.9) 05/11/17 05:35 Hct 38.3 % (35.4-49) 05/11/17 05:35 MCV 91.2 fl (80-96) 05/11/17 05:35 MCHC 34.2 g/dl (32.0-35.9) 05/11/17 05:35 RDW 13.6 % (11.9-15.9) 05/11/17 05:35 Plt Count 231 K/MM3 (134-434) 05/11/17 05:35 MPV 6.7 fl (7.5-11.1) L 05/11/17 05:35 CMP Sodium 132 mmol/L (136-145) L 05/11/17 14:45 Potassium 4.6 mmol/L (3.5-5.1) 05/11/17 14:45 Chloride 96 mmol/L (98-107) L 05/11/17 14:45 Carbon Dioxide 26 mmol/L (21-32) 05/11/17 14:45 Anion Gap 10 (8-16) 05/11/17 14:45 BUN 19 mg/dL (7-18) H 05/11/17 14:45 Creatinine 1.0 mg/dL (0.7-1.3) D 05/11/17 14:45 Creat Clearance w eGFR > 60 (>60) 05/11/17 05:35 Random Glucose 198 mg/dL (74-106) H D 05/11/17 14:45 Calcium 8.3 mg/dL (8.5-10.1) L 05/11/17 14:45 Total Bilirubin 0.6 mg/dL (0.2-1.0) 05/11/17 05:35 AST 12 U/L (15-37) L 05/11/17 05:35 ALT 15 U/L (12-78) D 05/11/17 05:35 Alkaline Phosphatase 75 U/L (45-117) 05/11/17 05:35 Total Protein 5.8 g/dl (6.4-8.2) L 05/11/17 05:35 Albumin 3.2 g/dl (3.4-5.0) L 05/11/17 05:35 CARDIAC ENZYMES Creatine Kinase 143 IU/L (39-308) 05/10/17 05:30 Troponin I < 0.02 ng/ml (0.00-0.05) 05/10/17 20:30 Current Medications Generic Name Dose Route Start Last Admin Trade Name Freq PRN Reason Stop Dose Admin Aspirin 81 mg 05/11/17 10:00 05/11/17 10:14 Asa - PO 81 mg DAILY [facility] Administration Clopidogrel Bisulfate 75 mg 05/11/17 10:00 05/11/17 10:14 Plavix - PO 75 mg DAILY [facility] Administration Heparin Sodium (Porcine) 5,000 unit 05/11/17 14:00 05/11/17 15:10 Heparin - SQ Not Given TID [facility] Sodium Chloride 1,000 mls @ 75 mls/hr 05/10/17 10:45 05/11/17 10:15 Normal Saline - IV 75 mls/hr ASDIR [facility] Administration Insulin Aspart 1 vial 05/10/17 11:00 05/11/17 12:10 Novolog Vial Sliding Scale - SQ Not Given ACHS [facility] Protocol Lisinopril 20 mg 05/10/17 10:00 05/11/17 10:14 Prinivil PO 20 mg DAILY [facility] Administration Metoprolol Succinate 25 mg 05/11/17 10:00 05/11/17 10:14 Toprol Xl - PO 25 mg DAILY [facility] Administration Home Medications Medication Instructions Recorded Clopidogrel Bisulfate [Plavix -] 75 mg PO DAILY 04/10/15 Glyburide/Metformin HCl 1 each PO DAILY 05/10/17 [Glyburide-Metformin 5-500 mg] Lisinopril/Hydrochlorothiazide 1 each PO DAILY 05/10/17 [Lisinopril-Hctz 20-12.5 mg Tab] Metoprolol Succinate [Toprol Xl] 50 mg PO DAILY 05/10/17 Sitagliptin Phosphate [Januvia] 25 mg PO DAILY 05/10/17 ASSESSMENT AND PLAN: Patient is an 81 year old male with PMHx of afib s/p cardiac ablation, and stent placement around 7 years ago on Plavix and Aspirin( on and off) since gets bleeding due to aspirin and gets tinnitis , HTN, DM presenting with a 2 day history of irregular heart beat. #Acute Hyponatremia improving from level of 126--132 today , discontinued Hctz now, continue IVF x 1more liter. # Afib with rate controlled s/p Ablation in the past continue to monitor in Tele.cardio consult appreciated and discussed with # Hx of CAd continue Plavix and 81mg aspirin #Hypomagnesemia repleted # T2 DM, diabetic diet, ISS # HTN continue lisinopril 20mg dly; hold ld HCTZ- due to Hyponatremia, cont Metoprolol decreased to 25 XL from 50 mg since was found to be bradycardic DVT Px: Heparin sq
[2017-05-11 22:39] LABS: ANION GAP 11 (8-16); CALCIUM 8.5 mg/dL (8.5-10.1); CO2 22 mmol/L (21-32); CREATININE 0.9 mg/dL (0.7-1.3); GLUCOSE,RANDOM 172 mg/dL (74-106)
[2017-05-12] MEDS: INSULIN SLIDING SCALE (NOVOLOG) 1 VIAL SQ SCH ×2 (06:59→11:08)
[2017-05-12] MEDS: HEPARIN NA (PORCINE) 5,000 UNITS/ML 1ML VIAL SQ SCH (06:59)
--- NOTE | 2017-05-12 08:23 | PN ---
Physical Exam: SUBJECTIVE: Patient seen and examined Had an elevated systolic BP overnight. OBJECTIVE: Vital Signs Selected Entries 05/12/17 05/12/17 05/12/17 02:13 06:00 06:40 Blood Pressure 131/72 174/74 145/92 Laboratory Tests 05/10/17 20:30 Sodium 129 L Period Temp Pulse Resp BP Sys/[place] Pulse Ox Last 24 Hr 97.8 F-98.4 F 59-72 16-18 131-174/72-92 98-99 GENERAL: Awake, alert, and fully oriented, in no acute respiratory distress. HEAD: Normal with no signs of trauma. EYES: Pupils equal, round and reactive to light, extraocular movements intact, sclera anicteric, conjunctiva clear. No lid lag. EARS, NOSE, THROAT: Ears normal, nares patent, moist mucous membranes. NECK: supple, no JVD. LUNGS: Breath sounds equal, clear to auscultation bilaterally. No wheezes, and no crackles. No accessory muscle use. HEART: Regular rate and rhythm, normal S1 and S2 without murmur, rub or gallop. ABDOMEN: Soft, nontender, full, R hypochondrial scar, hemangiomas scattered over abdomen, normoactive bowel sounds, nontympanitic, organs difficult to palpate. MUSCULOSKELETAL: Normal range of motion at all joints. No bony deformities or tenderness. No CVA tenderness. UPPER EXTREMITIES: 2+ pulses, warm, well-perfused. No cyanosis. No clubbing. No peripheral edema. LOWER EXTREMITIES: 2+ pulses, warm, well-perfused. No calf tenderness. No peripheral edema. NEUROLOGICAL: Oriented X3, absent facial droop. Muscle strength 5/5 globally, normal tone, reflexes 2+. Normal speech. Gait not observed PSYCHIATRIC: Cooperative. Good eye contact. Appropriate mood and affect. 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 Mobile, soft, not attached to overlying skin or underlying structures. Warm, dry, hemangiomas over abdomen and some skin tags. Laboratory Results - last 24 hr 05/11/17 05/11/17 05/11/17 05:35 14:45 17:52 Sodium 132 L 132 L Potassium 4.4 4.6 Chloride 99 96 L Carbon Dioxide 27 26 Anion Gap 6 L 10 BUN 19 H 19 H Creatinine 0.8 1.0 D Creat Clearance w eGFR > 60 POC Glucometer 143 Random Glucose 148 H D 198 H D Calcium 8.2 L 8.3 L Magnesium 2.1 Total Bilirubin 0.6 AST 12 L ALT 15 D Alkaline Phosphatase 75 Total Protein 5.8 L Albumin 3.2 L Triglycerides 53 D Cholesterol 145 Total LDL Cholesterol 47 D HDL Cholesterol 62 TSH 0.97 05/11/17 05/11/17 05/12/17 20:47 21:45 06:34 Sodium 133 L Potassium 4.2 Chloride 100 Carbon Dioxide 22 Anion Gap 11 BUN 22 H Creatinine 0.9 Creat Clearance w eGFR POC Glucometer 190 171 Random Glucose 172 H Calcium 8.5 Magnesium Total Bilirubin AST ALT Alkaline Phosphatase Total Protein Albumin Triglycerides Cholesterol Total LDL Cholesterol HDL Cholesterol TSH Active Medications Generic Name Dose Route Start Last Admin Trade Name Toddq PRN Reason Stop Dose Admin Aspirin 81 mg 05/11/17 10:00 05/11/17 10:14 Asa - PO 81 mg DAILY [facility] Administration Clopidogrel Bisulfate 75 mg 05/11/17 10:00 05/11/17 10:14 Plavix - PO 75 mg DAILY [facility] Administration Heparin Sodium (Porcine) 5,000 unit 05/11/17 14:00 05/12/17 06:59 Heparin - SQ 5,000 unit TID [facility] Administration Sodium Chloride 1,000 mls @ 75 mls/hr 05/10/17 10:45 05/11/17 10:15 Normal Saline - IV 75 mls/hr ASDIR [facility] Administration Insulin Aspart 1 vial 05/10/17 11:00 05/12/17 06:59 Novolog Vial Sliding Scale - SQ 2 units ACHS [facility] Administration Protocol Lisinopril 20 mg 05/10/17 10:00 05/11/17 10:14 Prinivil PO 20 mg DAILY [facility] Administration Metoprolol Succinate 25 mg 05/11/17 10:00 05/11/17 10:14 Toprol Xl - PO 25 mg DAILY [facility] Administration ASSESSMENT/PLAN: An 81 year old Male with PMHx of afib, cardiac ablation and stent, DM and HTN admitted with palpitations and found to have hypomagnesemia and hyponatremia # Afib: Past hx of afib with ablation and stent placement, on ASA on admission On telemetry Continous cardiac monitoring Metoprolol changed from 25mg back to 50mg PO XL Increased lisinopril from 20mg to 40mg dly Continue plavix 75mg dly ASA 81 mg dly Refused stress test #Hyponatremia Na -improved to 133 this morning Continue N/saline @75mls/hr Repeat BMP and reevaluate with results # HTN Increased lisinopril from 20mg to 40mg dly Hold HCTZ- due to Hyponatremia Metoprolol changed from 25mg back to 50mg PO XL # DM Diabetic diet ISS #Hypomagnesemia- likely due to diuretic use - resolved You were admitted for palpitations and irregular beating of your heart. You reported not taking your ASA while at home. You were found to have low levels of magnesium and sodium in the emergency room , for which you were treated with magnesium and intravenous fluids. Your magnesium jamie from Mg-1.7 to 2.1, and your sodium from 126 to 132 Your diabetes was being treated with insulin. While you were here on continuos cardiac monitoring, it was discovered that you had a very low heart rate at night and your metoprolol dose was reduced from 100mg to 50mg but with the high blood pressure noticed, it was changed back to Metoprolo 50mg dly The diuretic part (hydrochlorothiazide) of your hypertension drug that combined lisinopril -20 and hydrochlorothiazide 12.5 was stopped and you were placed on only lisinopril 20mg initially, but changed to 40mg daily. You had a high blood pressure of 174/74 overnight and we again modified your high blood pressure medication. You declined to have a stress test after the risks and benefits were explained to you by the skip hoist operator. You are being discharged: Please continue your ASA -81mg daily and Plavix 75 mg daily(for your stent and Afib) Metoprolol 50mg daily, Lisinopril 40mg daily for the High blood pressure. You will stop the lisinopril-hydrochlorothiazide combination pill- 20-12.5 Continue Sitagliptin for your diabetes Please see your primary doctor in one week If you think you are not getting better, or if your symptoms worsen, please see your primary care physician, or go to the nearest emergency room. An 81 year old Male with PMHx of afib non compliant on ASA, cardiac ablation and stent, DM and HTN admitted with palpitations and found to have hypomagnesemia and hyponatremia in the ER. Troponins on admission were negative EKG-Showed sinus rythm and 1st degree heart block CXR- Showed no evidence of active pulmonary disease BMP, P, Mg- Showed hyponatremia at 126, Mg-1.7, managed with Mg oxide PO and IV fluid N/saline and the Mg -2.1 with Na -132 While here, the patient has been put back on ASA 81 mg PO stat, was on insulin sliding scale for his diabetes, and continued his plavix. For bradycardia, his metoprolol was initially reduced from 50mg XL to 25mg XL. He however had a blood pressure spike and seemed to have palpitations, so Metoprolol was returned to 50mg XL PO. The lisinopril-hydrochlorothiazide combination pill- 20-12.5 was stopped because of the hydrochlorothiazide component and he was placed initially on Lisinopril 20mg daily then increased to Lisinopril 40mg daily. He was seen here by his skip hoist operator and refused the stress test. He is being discharged to follow up as an outpatient with both his primary care doctor and his skip hoist operator in a week's time.
[2017-05-12 08:51] LABS: ANION GAP 7 (8-16); CALCIUM 8.4 mg/dL (8.5-10.1); CO2 25 mmol/L (21-32); CREATININE 0.8 mg/dL (0.7-1.3); GLUCOSE,RANDOM 167 mg/dL (74-106)
[2017-05-12] MEDS: CLOPIDOGREL BISULFATE 75 MG TABLET (FP) PO SCH (09:57)
[2017-05-12] MEDS: ASPIRIN 81 MG CHEWABLE TABLETS PO SCH (09:57)
[2017-05-12] MEDS: LISINOPRIL 20 MG TABLET (FP) PO SCH (09:58)
[2017-05-12] MEDS ORDERED: METOPROLOL SUCCINATE 50 MG TAB.SR.24H (FP) PO SCH (10:00)
[2017-05-12] MEDS ORDERED: LISINOPRIL 20 MG TABLET (FP) PO SCH ×2 (10:00→10:30)
--- NOTE | 2017-05-12 10:21 | PN ---
Progress Note, Physician Chief Complaint: Pt A&Ox3; he is afraid that his heart rate oscar be too high if he continues to use metoprolol ER at only 25 mg instead of the 50 mg daily he is accustomed to. Had him ambulate several times down the hallway until he was tired; HR never exceeded 100 bpm. No chest pain or palpitations History of Present Illness: 81-year-old male with history of hypertension, A. fib complaining of irregular heartbeat at home yesterday lasting up to 15 minutes. Patient reports feeling dizzy and slightly nauseous at the time of the event. Patient noted similar symptoms this morning which prompted him to come to the emergency department. Patient is currently on aspirin and Plavix.Patient denies chest pain abdominal pain headache at this time. - Current Medication List Current Medications: Active Medications Aspirin (Asa -) 81 mg PO DAILY [facility] Last Admin: 05/12/17 09:57 Dose: 81 mg Clopidogrel Bisulfate (Plavix -) 75 mg PO DAILY [facility] Last Admin: 05/12/17 09:57 Dose: 75 mg Heparin Sodium (Porcine) (Heparin -) 5,000 unit SQ TID [facility] Last Admin: 05/12/17 06:59 Dose: 5,000 unit Sodium Chloride (Normal Saline -) 1,000 mls @ 75 mls/hr IV ASDIR [facility] Last Admin: 05/11/17 10:15 Dose: 75 mls/hr Insulin Aspart (Novolog Vial Sliding Scale -) 1 vial SQ ACHS [facility] PRN Reason: Protocol Last Admin: 05/12/17 06:59 Dose: 2 units - Objective Vital Signs: Vital Signs Temperature 98.1 F 05/12/17 06:00 Pulse Rate 69 05/12/17 06:00 Respiratory Rate 16 05/12/17 06:00 Blood Pressure 145/92 05/12/17 06:40 O2 Sat by Pulse Oximetry (%) 98 05/11/17 21:00 Constitutional: Yes: Anxious Eyes: Yes: WNL HENT: Yes: WNL Neck: Yes: WNL Cardiovascular: Yes: Bradycardia, Pulse Irregular Respiratory: Yes: Regular Gastrointestinal: Yes: Soft ...Rectal Exam: Yes: Deferred Genitourinary: No: Anuria Breast(s): Yes: WNL Musculoskeletal: Yes: WNL Extremities: Yes: WNL Edema: No Peripheral Pulses WNL: Yes Integumentary: Yes: WNL Neurological: Yes: Alert, Oriented Psychiatric: Yes: Alert, Oriented Labs: CBC, BMP 05/11/17 05:35 05/12/17 06:00 INR, PTT INR 1.09 (0.82-1.09) 05/10/17 05:30 Problem List - Problems (1) Hyponatremia Code(s): E87.1 - HYPO-OSMOLALITY AND HYPONATREMIA (2) Intermittent palpitations Code(s): R00.2 - PALPITATIONS (3) RIAZ (acute kidney injury) Code(s): N17.9 - ACUTE KIDNEY FAILURE, UNSPECIFIED (4) Atrial fibrillation Assessment/Plan: Pt says he was once on rivaroxaban, but had bleeding ("drops of blood").However , he apparetnly also had bleeding with ASA, andis on clopdigrel, both of which might be discontinued if he starts on warfarin or NOAC. The risks of not being on warfarin or a NOAC were discussed in detail with him. Agreed to start 35.5 mg metorpolol. Must watch for slow VR 9Had ventricular bigeminy; HR in low 40s at one polint). If pt is discharged, will require Holter monitor in the next week and f/u with senior water/wastewater engineer. May require PPM.This was disucussed in detail with him. Code(s): I48.91 - UNSPECIFIED ATRIAL FIBRILLATION (5) HTN (hypertension) Code(s): I10 - ESSENTIAL (PRIMARY) HYPERTENSION (6) Low back pain Code(s): M54.5 - LOW BACK PAIN Qualifiers: Chronicity: acute Back pain laterality: midline (7) Atypical chest pain Code(s): R07.89 - OTHER CHEST PAIN
[2017-05-12] MEDS ORDERED: METOPROLOL SUCCINATE 25 MG TAB.SR.24H (FP) PO SCH (10:30)
[2017-05-12] MEDS: SODIUM CHLORIDE 1,000 ML IV SCH (11:03)
[2017-05-12 12:00] VITALS: TEMP 98.9
--- NOTE | 2017-05-12 12:12 | PN ---
Teaching Attending Note Name of Resident: Paula Lugo ATTENDING PHYSICIAN STATEMENT I saw and evaluated the patient. I reviewed the resident's note and discussed the case with the resident. I agree with the resident's findings and plan as documented. SUBJECTIVE: OBJECTIVE: Vital Signs Temperature 98.9 F 05/12/17 10:00 Pulse Rate 67 05/12/17 12:29 Respiratory Rate 16 05/12/17 10:00 Blood Pressure 107/78 05/12/17 12:29 O2 Sat by Pulse Oximetry (%) 98 05/11/17 21:00 His blood pressure after taking 37.5mg toprol xl and lisinopril 20mg. CBCD WBC 6.1 K/mm3 (4.0-10.0) 05/11/17 05:35 RBC 4.21 M/mm3 (4.00-5.60) 05/11/17 05:35 Hgb 13.1 GM/dL (11.7-16.9) 05/11/17 05:35 Hct 38.3 % (35.4-49) 05/11/17 05:35 MCV 91.2 fl (80-96) 05/11/17 05:35 MCHC 34.2 g/dl (32.0-35.9) 05/11/17 05:35 RDW 13.6 % (11.9-15.9) 05/11/17 05:35 Plt Count 231 K/MM3 (134-434) 05/11/17 05:35 MPV 6.7 fl (7.5-11.1) L 05/11/17 05:35 CMP Sodium 132 mmol/L (136-145) L 05/12/17 06:00 Potassium 4.2 mmol/L (3.5-5.1) 05/12/17 06:00 Chloride 100 mmol/L (98-107) 05/12/17 06:00 Carbon Dioxide 25 mmol/L (21-32) 05/12/17 06:00 Anion Gap 7 (8-16) L 05/12/17 06:00 BUN 17 mg/dL (7-18) D 05/12/17 06:00 Creatinine 0.8 mg/dL (0.7-1.3) 05/12/17 06:00 Creat Clearance w eGFR > 60 (>60) 05/11/17 05:35 Random Glucose 167 mg/dL (74-106) H 05/12/17 06:00 Calcium 8.4 mg/dL (8.5-10.1) L 05/12/17 06:00 Total Bilirubin 0.6 mg/dL (0.2-1.0) 05/11/17 05:35 AST 12 U/L (15-37) L 05/11/17 05:35 ALT 15 U/L (12-78) D 05/11/17 05:35 Alkaline Phosphatase 75 U/L (45-117) 05/11/17 05:35 Total Protein 5.8 g/dl (6.4-8.2) L 05/11/17 05:35 Albumin 3.2 g/dl (3.4-5.0) L 05/11/17 05:35 CARDIAC ENZYMES Creatine Kinase 143 IU/L (39-308) 05/10/17 05:30 Troponin I < 0.02 ng/ml (0.00-0.05) 05/10/17 20:30 Current Medications Generic Name Dose Route Start Last Admin Trade Name Freq PRN Reason Stop Dose Admin Aspirin 81 mg 05/11/17 10:00 05/12/17 09:57 Asa - PO 81 mg DAILY [facility] Administration Clopidogrel Bisulfate 75 mg 05/11/17 10:00 05/12/17 09:57 Plavix - PO 75 mg DAILY [facility] Administration Heparin Sodium (Porcine) 5,000 unit 05/11/17 14:00 05/12/17 06:59 Heparin - SQ 5,000 unit TID [facility] Administration Sodium Chloride 1,000 mls @ 75 mls/hr 05/10/17 10:45 05/12/17 11:03 Normal Saline - IV 75 mls/hr ASDIR [facility] Administration Insulin Aspart 1 vial 05/10/17 11:00 05/12/17 11:08 Novolog Vial Sliding Scale - SQ 2 units ACHS [facility] Administration Protocol Lisinopril 20 mg 05/12/17 10:30 05/12/17 11:01 Prinivil PO 20 mg DAILY [facility] Administration Metoprolol Succinate 37.5 mg 05/12/17 10:30 05/12/17 11:01 Toprol Xl - PO 37.5 mg DAILY [facility] Administration Home Medications Medication Instructions Recorded Clopidogrel Bisulfate [Plavix -] 75 mg PO DAILY 04/10/15 Glyburide/Metformin HCl 1 each PO DAILY 05/10/17 [Glyburide-Metformin 5-500 mg] Metoprolol Succinate [Toprol Xl] 50 mg PO DAILY 05/10/17 Sitagliptin Phosphate [Januvia] 25 mg PO DAILY 05/10/17 Aspirin [ASA -] 81 mg PO DAILY #30 tab.chew 05/12/17 Lisinopril [Prinivil] 40 mg PO DAILY #30 tablet 05/12/17 ASSESSMENT AND PLAN: Patient is an 81 year old male with PMHx of afib s/p cardiac ablation, and stent placement around 7 years ago on Plavix and Aspirin( on and off) since gets bleeding due to aspirin and gets tinnitis , HTN, DM presenting with a 2 day history of irregular heart beat. #Acute Hyponatremia improved from level of 126--132-->132 today , discontinued his Hctz. Discussed with agrees with the discontinuing the HTCz, continue toprol XL with 37.5mg , and Lisinopril 20mg po daily. # Afib s/p Ablation in the past: rate controlled. Patient had Bigemeny on the monitor to low HR. But patient refuses to lower his Toprol XL to 25mg agreed to 37.5 mg and had a long conversation with the mc kay machine operator. Patient needs to follow up with mc kay machine operator as an outpatient for further assessment of his bradycardia and possible EPS as an outpatient. # Hx of CAd continue Plavix and 81mg aspirin #s/p Hypomagnesemia repleted # T2 DM, diabetic diet, ISS # HTN controlled now on lisinopril 20mg daily and Metoprolol 37.5 mg XL daily. discontinued HCTZ due to having low sodium. discussed with cardiolgist in details and patient was explained the new dosages of his meds.
[2017-05-12 12:29] VITALS: BP 107/78; PULSE 67
--- NOTE | 2017-05-12 13:30 | DS ---
Physical Exam: SUBJECTIVE: Patient seen and examined OBJECTIVE: Vital Signs Period Temp Pulse Resp BP Sys/Byrne Pulse Ox Last 24 Hr 97.8 F-98.9 F 59-77 16-18 107-174/72-92 98 PHYSICAL EXAM GENERAL: The patient is awake, alert, and fully oriented, in no acute distress. HEAD: Normal with no signs of trauma. EYES: PERRL, extraocular movements intact, sclera anicteric, conjunctiva clear. ENT: Ears normal, nares patent, oropharynx clear without exudates, moist mucous membranes. NECK: Trachea midline, full range of motion, supple. LUNGS: Breath sounds equal, clear to auscultation bilaterally, no wheezes, no crackles, no accessory muscle use. HEART: Regular rate and rhythm, S1, S2 without murmur, rub or gallop. ABDOMEN: Soft, nontender, nondistended, normoactive bowel sounds, no guarding, no rebound, no hepatosplenomegaly, no masses. EXTREMITIES: 2+ pulses, warm, well-perfused, no edema. NEUROLOGICAL: Cranial nerves II through XII grossly intact. Normal speech, gait not observed. PSYCH: Normal mood, normal affect. SKIN: Warm, dry, normal turgor, no rashes or lesions noted. LABS Laboratory Results - last 24 hr 05/11/17 05/11/17 05/11/17 14:45 17:52 20:47 Sodium 132 L Potassium 4.6 Chloride 96 L Carbon Dioxide 26 Anion Gap 10 BUN 19 H Creatinine 1.0 D POC Glucometer 143 190 Random Glucose 198 H D Calcium 8.3 L 05/11/17 05/12/17 05/12/17 21:45 06:00 06:34 Sodium 133 L 132 L Potassium 4.2 4.2 Chloride 100 100 Carbon Dioxide 22 25 Anion Gap 11 7 L BUN 22 H 17 D Creatinine 0.9 0.8 POC Glucometer 171 Random Glucose 172 H 167 H Calcium 8.5 8.4 L 05/12/17 11:07 Sodium Potassium Chloride Carbon Dioxide Anion Gap BUN Creatinine POC Glucometer 171 Random Glucose Calcium HOSPITAL COURSE: Patient is an 81 year old male with PMHx of afib s/p cardiac ablation, and stent placement around 7 years ago on Plavix and Aspirin (on and off) since he gets bleeding due to aspirin and gets tinnitis, HTN, DM presented with a 2 day history of irregular heart beat and found to have hypomagnesemia and hyponatremia. Troponins on admission were negative EKG-Showed sinus rythm and 1st degree heart block CXR- Showed no evidence of active pulmonary disease Hyponatremia at presentation was 126, treated with IV fluid N/saline and corrected to Na -132 Hypomagnesemia at presentation was Mg-1.7, managed with Mg oxide PO and corrected to Mg -2.1 While here, the patient has been put back on ASA 81 mg PO stat, was on insulin sliding scale for his diabetes, and continued his plavix. For bradycardia with bigeminy, his metoprolol was reduced from 50mg XL to 37.5mg XL. The lisinopril-hydrochlorothiazide combination pill- 20-12.5 was stopped because of hyponatremia and he is now on Lisinopril 20mg daily only. He was seen here by his oracle technical architect and refused the stress test. He is being discharged to follow up as an outpatient with both his primary care doctor and his oracle technical architect in a week's time. Date of Admission:05/10/17 Date of Discharge: 05/12/17 Minutes to complete discharge: 45 Discharge Summary Reason For Visit: HYPONATREMIA,PALPITATIONS Current Active Problems Hypomagnesemia (Acute) Hyponatremia (Acute) Intermittent palpitations (Acute) Atrial fibrillation (Chronic) Diabetes 1.5, managed as type 2 (Chronic) HTN (hypertension) (Chronic) Condition: Stable - Instructions Diet, Activity, Other Instructions: You were admitted for palpitations and irregular beating of your heart. You reported not taking your ASA while at home. You were found to have low levels of magnesium and sodium, for which you were treated with magnesium and intravenous fluids. Your magnesium jamie from Mg-1.7 to 2.1, and your sodium from 126 to 132. Add little salt to your diet. Your diabetes was being treated with insulin. While you were here on continuos cardiac monitoring, it was discovered that you had a low heart rate at night, and your metoprolol dose was reduced from 50mg to 37.5mg . Your hypertension drug that combined lisinopril -20 and hydrochlorothiazide 12.5 was stopped. You were placed on only lisinopril 20mg You declined to have a stress test after the risks and benefits were explained to you by the oracle technical architect. You are being discharged: Please continue your ASA -81mg daily and Plavix 75 mg daily(for your stent and Afib) Metoprolol 37.5mg daily, Lisinopril 20mg daily for the High blood pressure. You will stop the lisinopril-hydrochlorothiazide combination pill- 20-12.5 Continue Sitagliptin and glyburide/metformin for your diabetes Continue your Vitamin D tablets Please see your primary doctor in one week, to have your sodium rechecked and your diabetes monitored. Also see your oracle technical architect in one week about your heart condition. If your symptoms worsen, please see your primary care physician, or go to the nearest emergency room. Referrals: Perez Lino MD [Primary Care Provider] - 1 Week (Follow up for sodium level , diabetes and other management) Fabio Nichols MD [Staff Physician] - 1 Week (For CAD) Disposition: HOME - Home Medications Comprehensive Discharge Medication List: Ambulatory Orders Clopidogrel Bisulfate [Plavix -] 75 mg PO DAILY 04/10/15 Glyburide/Metformin HCl [Glyburide-Metformin 5-500 mg] 1 each PO DAILY 05/10/17 Sitagliptin Phosphate [Januvia] 25 mg PO DAILY 05/10/17 Aspirin [ASA -] 81 mg PO DAILY #30 tab.chew 05/12/17 Lisinopril [Prinivil] 20 mg PO DAILY #30 tablet 05/12/17 Metoprolol Succinate [Toprol XL -] 37.5 mg PO DAILY #60 tab 05/12/17 This patient is new to me today: No Emergency Visit: Yes ED Registration Date: 05/10/17 Care time: The patient presented to the Emergency Department on the above date and was hospitalized for further evaluation of their emergent condition. Critical Care patient: No - Discharge Referral Referred to [facility] Med P.C.: No
[2017-05-13] MEDS ORDERED: LISINOPRIL 20 MG TABLET (FP) PO SCH (10:00)
[2017-05-13] MEDS ORDERED: METOPROLOL SUCCINATE 25 MG TAB.SR.24H (FP) PO SCH (10:00)
== END 2017-05-12 15:26 | disposition home or self-care (01) | DRG 641 ==
LOC: JER 04:55 → JERBED 06:56 → J4W 12:05
PROVIDERS: ADMIT Internal Medicine; ATTEND Internal Medicine
DX: E87.1 Hypo-osmolality and hyponatremia (principal); E83.42 Hypomagnesemia; I10 Essential (primary) hypertension; E11.9 Type 2 diabetes mellitus without complications; I48.91 Unspecified atrial fibrillation; I25.10 Atherosclerotic heart disease of native coronary artery without angina pectoris; R00.2 Palpitations; M54.5 Low back pain
CPT/HCPCS: 36415; 71020-TC; 80048; 80053; 80061; 81003; 83721; 83735; 84100; 84443; 84484; 85025; 85610; 87086; 93005; 93010; 93306-TC; 99285-25; J1644

== ENCOUNTER 2017-09-12 14:17 | Emergency (ER) | payer BC, OTHER ==
[2017-09-12 15:16] VITALS: TEMP 97.8; BMI 22.4
--- NOTE | 2017-09-12 17:16 | PDOC ---
History of Present Illness <Estelle Fernandez - Last Filed: 09/12/17 20:21> <Mary Jo Palumbo - Last Filed: 09/12/17 21:02> - General History Source: Patient Exam Limitations: No Limitations - History of Present Illness Initial Comments: 09/12/17 20:54 The patient is an 82 year old male with history of hypertension, hyperlipidemia , atrial fibrillation s/p pacemaker placement, prostate CA s/p seed who presents to the ED complaining of several days of subjective fever (not measured at home), chills, and night sweats. No fever measured on ED arrival. The patient denies any nausea, vomiting, or diarrhea. He denies chest pain, shortness of breath, cough, or wheezing. He denies any urinary complaints. <Vesna Dela Cruz - Last Filed: 09/12/17 21:24> - General Chief Complaint: Cold Symptoms Stated Complaint: FEVER Time Seen by Provider: 09/12/17 17:02 Past History <Estelle Fernandez - Last Filed: 09/12/17 20:21> - Past Medical History Anemia: No Asthma: No Cancer: Yes (PROSTATE CA '03 - SEED IMPLANT) Cardiac Disorders: Yes (A-fib) CVA: No COPD: No CHF: No Dementia: No Diabetes: Yes GI Disorders: No Disorders: No HTN: Yes Hypercholesterolemia: Yes Liver Disease: No Seizures: No Thyroid Disease: No - Surgical History Abdominal Surgery: No Appendectomy: Yes Cardiac Surgery: Yes (CARDIAC CATH; ABLATION) Cholecystectomy: No Lung Surgery: No Neurologic Surgery: No - Immunization History Immunization Up to Date: No - Suicide/Smoking/Psychosocial Hx Smoking History: Never smoked Have you smoked in the past 12 months: No Information on smoking cessation initiated: No Hx Alcohol Use: No Drug/Substance Use Hx: No Substance Use Type: None Hx Substance Use Treatment: No <Mary Jo Palumbo - Last Filed: 09/12/17 21:02> <Vesna Dela Cruz - Last Filed: 09/12/17 21:24> - Past Medical History Allergies/Adverse Reactions: Allergies Allergy/AdvReac Type Severity Reaction Status Date / Time No Known Allergies Allergy Verified 09/12/17 15:11 Home Medications: Ambulatory Orders Clopidogrel Bisulfate [Plavix -] 75 mg PO DAILY 04/10/15 Glyburide/Metformin HCl [Glyburide-Metformin 5-500 mg] 1 each PO DAILY 05/10/17 Sitagliptin Phosphate [Januvia] 25 mg PO DAILY 05/10/17 Lisinopril [Prinivil] 20 mg PO DAILY #30 tablet 05/12/17 Metoprolol Succinate [Toprol XL -] 37.5 mg PO DAILY #60 tab 05/12/17 Rivaroxaban [Xarelto -] 20 mg PO DAILY 09/12/17 Review of Systems - Review of Systems Able to Perform ROS?: Yes Comments:: 09/12/17 20:57 CONSTITUTIONAL: Present: subjective fever, night sweats, chills Absent: diaphoresis, generalized weakness, malaise, loss of appetite HEENT: Present: impacted cerumen Absent: rhinorrhea, nasal congestion, throat pain, throat swelling, difficulty swallowing, mouth swelling, ear pain, eye pain, visual Changes CARDIOVASCULAR: Absent: chest pain, syncope, palpitations, irregular heart rate, lightheadedness , peripheral edema RESPIRATORY: Absent: cough, shortness of breath, dyspnea with exertion, orthopnea, wheezing, stridor, hemoptysis GASTROINTESTINAL: Absent: abdominal pain, abdominal distension, nausea, vomiting, diarrhea, constipation, melena, hematochezia GENITOURINARY: Absent: dysuria, frequency, urgency, hesitancy, hematuria, flank pain, genital pain MUSCULOSKELETAL: Absent: myalgia, arthralgia, joint swelling SKIN: Absent: rash, itching, pallor HEMATOLOGIC/IMMUNOLOGIC: Absent: easy bleeding, easy bruising, lymphadenopathy, frequent infections ENDOCRINE: Absent: unexplained weight gain, unexplained weight loss, heat intolerance, cold intolerance NEUROLOGIC: Absent: headache, focal weakness or paresthesias, dizziness, unsteady gait, seizure, mental status changes, bladder or bowel incontinence PSYCHIATRIC: Absent: anxiety, depression, suicidal or homicidal ideation, hallucinations. <Vesna Dela Cruz - Last Filed: 09/12/17 21:24> *Physical Exam - Vital Signs Last Vital Signs Temp Pulse Resp BP Pulse Ox 97.8 F 64 18 167/92 96 09/12/17 15:13 09/12/17 19:07 09/12/17 19:07 09/12/17 19:07 09/12/17 19:07 <Estelle Fernandez - Last Filed: 09/12/17 20:21> - Vital Signs Last Vital Signs Temp Pulse Resp BP Pulse Ox 97.8 F 74 16 174/99 98 09/12/17 15:13 09/12/17 15:13 09/12/17 15:13 09/12/17 15:13 09/12/17 15:13 <Mary Jo Palumbo - Last Filed: 09/12/17 21:02> - Vital Signs Last Vital Signs Temp Pulse Resp BP Pulse Ox 97.8 F 64 18 167/92 96 09/12/17 15:13 09/12/17 19:07 09/12/17 19:07 09/12/17 19:07 09/12/17 19:07 - Physical Exam Comments: 09/12/17 20:52 GENERAL: Well developed, well nourished. Awake and alert. No acute distress. HEENT: Normocephalic, atraumatic. PERRLA, EOMI. No conjunctival pallor. Sclera are non- icteric. Moist mucous membranes. Oropharynx is clear. NECK: Supple. Full ROM. No JVD. Carotid pulses 2+ and symmetric, without bruits. No thyromegaly. No lymphadenopathy. CARDIOVASCULAR: Regular rate and rhythm. No murmurs, rubs, or gallops. Distal pulses are 2+ and symmetric. PULMONARY: No evidence of respiratory distress. Lungs clear to auscultation bilaterally. No wheezing, rales or rhonchi. ABDOMINAL: Soft. Non-tender. Non-distended. No rebound or guarding. No organomegaly. Normoactive bowel sounds. MUSCULOSKELETAL Normal range of motion at all joints. No bony deformities or tenderness. No CVA tenderness. EXTREMITIES: No cyanosis. No clubbing. No edema. No calf tenderness. SKIN: Warm and dry. Normal capillary refill. No rashes. No jaundice. NEUROLOGICAL: Alert, awake, appropriate. Cranial nerves 2-12 intact. No deficits to light touch and temperature in face, upper extremities and lower extremities. No motor deficits in the in face, upper extremities and lower extremities. Normoreflexic in the upper and lower extremities. Normal speech. Gait is normal without ataxia. PSYCHIATRIC: Cooperative. Good eye contact. Appropriate mood and affect. <Vesna Dela Cruz - Last Filed: 09/12/17 21:24> Heart Score/ECG Review #1 09/12/17 21:23 EKG obtained 20:03. Suspect unspecified pacemaker failure. Sinus rhythm wth occasionla AV dual-paced complexes and with frequent premature ventricular complexes and premature atrial complexes at 84 bpm. Prolonged QT Abnormal EKG. <Vesna Dela Cruz - Last Filed: 09/12/17 21:24> ED Treatment Course - LABORATORY CBC & Chemistry Diagram: 09/12/17 17:21 09/12/17 17:21 - ADDITIONAL ORDERS Additional order review: Laboratory Results 09/12/17 09/12/17 09/12/17 18:15 17:22 17:22 PT with INR 30.90 H INR 2.73 H D Sodium Potassium Chloride Carbon Dioxide Anion Gap BUN Creatinine Creat Clearance w eGFR Random Glucose Lactic Acid Calcium Total Bilirubin AST ALT Alkaline Phosphatase Creatine Kinase Troponin I Total Protein Albumin Urine Color Ltyellow Urine Appearance Clear Urine pH 5.0 D Ur Specific [place] 1.017 Urine Protein Negative Urine Glucose (UA) Negative Urine Ketones Trace H Urine Blood Negative Urine Nitrite Negative Urine Bilirubin Negative Urine Urobilinogen Negative Ur Leukocyte Esterase Negative Blood Type A NEGATIVE Antibody Screen Negative 09/12/17 09/12/17 17:21 17:20 PT with INR INR Sodium 135 L Potassium 4.5 Chloride 101 Carbon Dioxide 25 Anion Gap 9 BUN 30 H D Creatinine 1.1 D Creat Clearance w eGFR > 60 Random Glucose 88 D Lactic Acid 1.1 Calcium 9.0 Total Bilirubin 0.5 AST 18 D ALT 20 D Alkaline Phosphatase 91 D Creatine Kinase 135 Troponin I < 0.02 Total Protein 7.5 D Albumin 4.0 D Urine Color Urine Appearance Urine pH Ur Specific [place] Urine Protein Urine Glucose (UA) Urine Ketones Urine Blood Urine Nitrite Urine Bilirubin Urine Urobilinogen Ur Leukocyte Esterase Blood Type Antibody Screen 09/12/17 17:21 RBC 4.53 MCV 93.2 MCHC 33.2 RDW 14.3 MPV 7.2 L Neutrophils % 67.2 D Lymphocytes % 14.7 D Monocytes % 10.7 H Eosinophils % 6.5 H Basophils % 0.9 <Estelle Fernandez - Last Filed: 09/12/17 20:21> - LABORATORY CBC & Chemistry Diagram: 09/12/17 17:21 09/12/17 17:21 <Mary Jo Palumbo - Last Filed: 09/12/17 21:02> - LABORATORY CBC & Chemistry Diagram: 09/12/17 17:21 09/12/17 17:21 - ADDITIONAL ORDERS Additional order review: Laboratory Results 09/12/17 09/12/17 09/12/17 18:15 17:22 17:22 PT with INR 30.90 H INR 2.73 H D Sodium Potassium Chloride Carbon Dioxide Anion Gap BUN Creatinine Creat Clearance w eGFR Random Glucose Lactic Acid Calcium Total Bilirubin AST ALT Alkaline Phosphatase Creatine Kinase Troponin I Total Protein Albumin Urine Color Ltyellow Urine Appearance Clear Urine pH 5.0 D Ur Specific [place] 1.017 Urine Protein Negative Urine Glucose (UA) Negative Urine Ketones Trace H Urine Blood Negative Urine Nitrite Negative Urine Bilirubin Negative Urine Urobilinogen Negative Ur Leukocyte Esterase Negative Blood Type A NEGATIVE Antibody Screen Negative 09/12/17 09/12/17 17:21 17:20 PT with INR INR Sodium 135 L Potassium 4.5 Chloride 101 Carbon Dioxide 25 Anion Gap 9 BUN 30 H D Creatinine 1.1 D Creat Clearance w eGFR > 60 Random Glucose 88 D Lactic Acid 1.1 Calcium 9.0 Total Bilirubin 0.5 AST 18 D ALT 20 D Alkaline Phosphatase 91 D Creatine Kinase 135 Troponin I < 0.02 Total Protein 7.5 D Albumin 4.0 D Urine Color Urine Appearance Urine pH Ur Specific [place] Urine Protein Urine Glucose (UA) Urine Ketones Urine Blood Urine Nitrite Urine Bilirubin Urine Urobilinogen Ur Leukocyte Esterase Blood Type Antibody Screen 09/12/17 17:21 RBC 4.53 MCV 93.2 MCHC 33.2 RDW 14.3 MPV 7.2 L Neutrophils % 67.2 D Lymphocytes % 14.7 D Monocytes % 10.7 H Eosinophils % 6.5 H Basophils % 0.9 <Vesna Dela Cruz - Last Filed: 09/12/17 21:24> Medical Decision Making - Medical Decision Making 09/12/17 8:20pm Call placed to Dr. Colt Cruz's answering service, awaiting call back. <Estelle Fernandez - Last Filed: 09/12/17 20:21> *DC/Admit/Observation/Transfer - Attestations Scribe Attestion: 09/12/17 20:22 Documentation prepared by Estelle Fernandez, acting as durable medical equipment technician for Mary Jo Palumbo MD. <Estelle Fernandez - Last Filed: 09/12/17 20:21> <Mary Jo Palumbo - Last Filed: 09/12/17 21:02> - Attestations Scribe Attestion: 09/12/17 20:58 Documentation prepared by Vesna Dela Cruz, acting as durable medical equipment technician for Mary Jo Palumbo MD. <Vesna Dela Cruz - Last Filed: 09/12/17 21:24> Diagnosis at time of Disposition: Diaphoresis Atrial fibrillation Qualifiers: Atrial fibrillation type: chronic Qualified Code(s): I48.2 - Chronic atrial fibrillation - Discharge Dispostion Disposition: HOME Condition at time of disposition: Stable - Referrals Referrals: Perez Lino MD [Primary Care Provider] - - Patient Instructions Printed Discharge Instructions: Hyperhidrosis Additional Instructions: please see your regular physician this week Take the medications your doctor has prescribed to you - Post Discharge Activity
[2017-09-12 17:42] LABS: BASO % 0.9 % (0-2.0); EOS % 6.5 % (0-4.5); HEMATOCRIT 42.2 % (35.4-49); LYMPH % 14.7 % (8-40); MCHC 33.2 g/dl (32.0-35.9); MEAN CELL VOLUME 93.2 fl (80-96); MEAN PLT VOLUME 7.2 fl (7.5-11.1); MONO % 10.7 % (3.8-10.2); NEUT % 67.2 % (42.8-82.8); PLATELET COUNT 299 K/MM3 (134-434); RBC 4.53 M/mm3 (4.00-5.60); RDW 14.3 % (11.9-15.9); WHITE BLOOD COUNT 8.9 K/mm3 (4.0-10.0)
[2017-09-12 18:06] LABS: ANION GAP 9 (8-16); BILIRUBIN,TOTAL 0.5 mg/dL (0.2-1.0); BLOOD UREA NITROGEN 30 mg/dL (7-18); CHLORIDE 101 mmol/L (98-107); CO2 25 mmol/L (21-32); CREATININE 1.1 mg/dL (0.7-1.3); GLUCOSE,RANDOM 88 mg/dL (74-106); SGPT/ALT 20 U/L (12-78); SODIUM 135 mmol/L (136-145); TOT PROT 7.5 g/dl (6.4-8.2)
[2017-09-12 18:17] LABS: ALK PHOS 91 U/L (45-117)
[2017-09-12 18:30] LABS: POTASSIUM 4.5 mmol/L (3.5-5.1); SGOT/AST 18 U/L (15-37)
[2017-09-12 18:43] LABS: INR 2.73 (0.82-1.09); PROTHROMBIN TIME (PATIENT) 30.9 SEC (9.98-11.88)
[2017-09-12 18:53] LABS: URINE APPEARANCE CLEAR; URINE BILIRUBIN NEGATIVE (NEGATIVE); URINE BLOOD NEGATIVE (NEGATIVE); URINE COLOR LTYELLOW; URINE GLUCOSE (UA) NEGATIVE (NEGATIVE); URINE KETONE TRACE (NEGATIVE); URINE LEUK ESTERASE NEGATIVE (NEGATIVE); URINE NITRITE NEGATIVE (NEGATIVE); URINE PROTEIN NEGATIVE (NEGATIVE); URINE UROBILINOGEN NEGATIVE mg/dL (0.2-1.0)
[2017-09-12 19:07] VITALS: BP 167/92; PULSE 64
--- NOTE | 2017-09-12 23:13 | PN ---
Progress Note, Physician History of Present Illness: The patient is an 82 year old male with history of hypertension, hyperlipidemia , atrial fibrillation s/p pacemaker placement, prostate CA s/p seed who presents to the ED complaining of several days of subjective fever (not measured at home), chills, and night sweats. No fever measured on ED arrival. The patient denies any nausea, vomiting, or diarrhea. He denies chest pain, shortness of breath, cough, or wheezing. He denies any urinary complaints. - Objective Vital Signs: Vital Signs Temperature 97.8 F 09/12/17 15:13 Pulse Rate 64 09/12/17 19:07 Respiratory Rate 18 09/12/17 19:07 Blood Pressure 167/92 09/12/17 19:07 O2 Sat by Pulse Oximetry (%) 96 09/12/17 19:07 Labs: CBC, BMP 09/12/17 17:21 09/12/17 17:21 INR, PTT INR 2.73 (0.82-1.09) H D 09/12/17 17:22
--- NOTE | 2017-09-13 10:52 | EKG ---
Test Reason : Blood Pressure : / mmHG Vent. Rate : 094 BPM Atrial Rate : 093 BPM P-R Int : 000 ms QRS Dur : 094 ms QT Int : 364 ms P-R-T Axes : -38 -06 036 degrees QTc Int : 455 ms av sequential pacing NONSPECIFIC ST ABNORMALITY ABNORMAL ECG WHEN COMPARED WITH ECG OF 12-SEP-2017 20:01, CURRENT UNDETERMINED RHYTHM PRECLUDES RHYTHM COMPARISON, NEEDS REVIEW Confirmed by SHARYN SAMS, YONG ([id number]) on 09/13/2017 10:52:02 AM Referred By: Confirmed By:YONG COLES MD
--- NOTE | 2017-09-13 10:56 | EKG ---
Test Reason : Blood Pressure : / mmHG Vent. Rate : 082 BPM Atrial Rate : 040 BPM P-R Int : 000 ms QRS Dur : 090 ms QT Int : 428 ms P-R-T Axes : 000 004 058 degrees QTc Int : 500 ms AV dual-paced rhythm with prolonged AV conduction WITH OCCASIONAL ventricular-paced complexes AND WITH FREQUENT PREMATURE VENTRICULAR COMPLEXES ABNORMAL ECG WHEN COMPARED WITH ECG OF 12-SEP-2017 18:04, ELECTRONIC VENTRICULAR PACEMAKER HAS REPLACED ELECTRONIC ATRIAL PACEMAKER Confirmed by YONG COLES MD ([id number]) on 09/13/2017 10:56:18 AM Referred By: Confirmed By:YONG COLES MD
--- NOTE | 2017-09-13 17:54 | PDOC ---
Patient Follow-up (Call Back) - Post ED Follow - Up Condition at time of discharge: Stable Disposition at time of original discharge: HOME Reason for Call Back: Abnwl. Microbiology ((+) blood culture result. 1 aerobic bottle with large gram positive bacilli. Called twice to speak to pt. Phone line busy first time. Rang over and over on second call.)
--- NOTE | 2017-09-14 07:48 | PDOC ---
Patient Follow-up (Call Back) - Post ED Follow - Up Condition at time of discharge: Stable Disposition at time of original discharge: HOME Reason for Call Back: Abnwl. Microbiology Signs/Symptoms Improved: Yes - Disposition Additional Instructions/Notes: Spoke with the patient. He states he feels fine. He denies fever. Strongly encouraged him to come back to the ER regarding abnormal blood culture result. He states he is going to wait a few days to see how he feels - if he gets worse he is going to come in.
--- NOTE | 2017-09-15 13:31 | EKG ---
Test Reason : Blood Pressure : / mmHG Vent. Rate : 076 BPM Atrial Rate : 076 BPM P-R Int : 000 ms QRS Dur : 118 ms QT Int : 354 ms P-R-T Axes : 050 -36 020 degrees QTc Int : 398 ms SINUS RHYTHM WITH FREQUENT atrial-paced complexes AND PREMATURE SUPRAVENTRICULAR COMPLEXES IN A PATTERN OF BIGEMINY LEFT AXIS DEVIATION RIGHT BUNDLE BRANCH BLOCK ABNORMAL ECG Confirmed by MD FAUSTO, FIDEL ([id number]) on 09/15/2017 1:31:30 PM Referred By: Confirmed By:FIDEL LAMBERT MD
== END 2017-09-12 21:52 | disposition home or self-care (01) ==
LOC: JER 14:17
DX: R61 Generalized hyperhidrosis (principal); I48.2 Chronic atrial fibrillation; I10 Essential (primary) hypertension; E78.5 Hyperlipidemia, unspecified; Z95.0 Presence of cardiac pacemaker; Z85.46 Personal history of malignant neoplasm of prostate
CPT/HCPCS: 36415; 71045-TC; 80053; 81003; 82550; 83605; 84484; 85025; 85610; 86850; 86900; 86901; 87040; 87086; 93005; 93010; 99284-25

== ENCOUNTER 2018-02-12 23:56 | Observation (INO) | payer BC ==
[2018-02-13 01:39] VITALS: BMI 23.1
--- NOTE | 2018-02-13 01:57 | PDOC ---
History of Present Illness - General Chief Complaint: Pain Stated Complaint: PAIN/ DISCOMFORT Time Seen by Provider: 02/13/18 01:57 - History of Present Illness Initial Comments: 82 year old male with PMH of HTN, HLD, afib s/p pacemaker placement (8 months prior), prostate CA s/p seed who presents to the ED complaining of right shoulder numbness since this morning. Patient states that he woke up with numbness and tingling in his right shoulder radiating down his arm. The tingling is not pleuritic but does radiate to his neck. Denies explicit chest pain, nausea, vomiting, diarrhea, constipation, fevers, chills, or other sick symptoms. His last stress test was "many years ago". His respiratory equipment assistant is Heron. 02/13/18 01:59 Past History - Past Medical History Allergies/Adverse Reactions: Allergies Allergy/AdvReac Type Severity Reaction Status Date / Time No Known Allergies Allergy Verified 02/13/18 01:39 Home Medications: Ambulatory Orders Clopidogrel Bisulfate [Plavix] 75 mg PO DAILY 02/13/18 Glyburide/Metformin HCl [Glyburide-Metformin 5-500 mg] 2.5 each PO 02/13/18 Lisinopril [Prinivil] 20 mg PO DAILY 02/13/18 Metoprolol Succinate [Toprol Xl -] 50 mg PO BID 02/13/18 Rivaroxaban [Xarelto -] 20 mg PO DAILY 02/13/18 Sitagliptin Phosphate [Januvia] 25 mg PO DAILY 02/13/18 Sotalol HCl [Sotalol AF] 120 mg PO BID 02/13/18 Anemia: No Asthma: No Cancer: Yes (PROSTATE CA '03 - SEED IMPLANT) Cardiac Disorders: Yes (A-fib) CVA: No COPD: No CHF: No Dementia: No Diabetes: Yes GI Disorders: No Disorders: No HTN: Yes Hypercholesterolemia: Yes Liver Disease: No Seizures: No Thyroid Disease: No - Surgical History Abdominal Surgery: No Appendectomy: Yes Cardiac Surgery: Yes (CARDIAC CATH; ABLATION) Cholecystectomy: No Lung Surgery: No Neurologic Surgery: No - Immunization History Immunization Up to Date: No - Suicide/Smoking/Psychosocial Hx Smoking History: Never smoked Have you smoked in the past 12 months: No Information on smoking cessation initiated: No Hx Alcohol Use: No Drug/Substance Use Hx: No Substance Use Type: None Hx Substance Use Treatment: No Review of Systems - Review of Systems Constitutional: No: Chills, Diaphoresis, Fever, Loss of Appetite HEENTM: No: Blurred Vision, Tearing Respiratory: No: Cough, Orthopnea, Shortness of Breath, SOB with Exertion Cardiac (ROS): No: Chest Pain, Edema, Irregular Heart Rate ABD/GI: No: Nausea, Poor Appetite : No: Burning, Dysuria, Discharge Musculoskeletal: No: Joint Swelling, Muscle Pain Integumentary: No: Bruising, Erythema, Flushing Neurological: Yes: Numbness, Paresthesia. No: Headache Endocrine: No: Excessive Sweating, Intolerance to Cold, Intolerance to Heat Hematologic/Lymphatic: No: Anemia, Blood Clots, Easy Bleeding *Physical Exam - Vital Signs Last Vital Signs Temp Pulse Resp BP Pulse Ox 98.3 F 61 18 166/84 100 02/13/18 00:05 02/13/18 00:05 02/13/18 00:05 02/13/18 00:05 02/13/18 00:05 - Physical Exam General Appearance: Yes: Nourished, Appropriately Dressed. No: Apparent Distress HEENT: positive: EOMI, RIVKA, Normal ENT Inspection, Normal Voice Neck: positive: Trachea midline, Normal Thyroid, Supple. negative: Tender, Rigid Respiratory/Chest: positive: Lungs Clear, Normal Breath Sounds. negative: Chest Tender, Respiratory Distress Cardiovascular: positive: Regular Rate, Other (paced rhythm). negative: Regular Rhythm Gastrointestinal/Abdominal: positive: Normal Bowel Sounds, Flat, Soft. negative : Tender Lymphatic: positive: Adenopathy. negative: Tenderness Musculoskeletal: positive: Normal Inspection. negative: Decreased Range of Motion, Muscle Spasm Extremity: positive: Normal Capillary Refill, Normal Inspection, Normal Range of Motion. negative: Tender Integumentary: positive: Normal Color, Dry, Warm Neurologic: positive: automatic shirring machine operator II-XII NML intact, Fully Oriented, Alert, Normal Mood/ Affect, Normal Response, Motor Strength 5/5. negative: Facial Droop, Numbness, Sensory Deficit Heart Score/ECG Review - History History: Moderately suspicious - Electrocardiogram EKG: Normal - Age Age: >/= 65 - Risk Factors Risk Factors Heart Score: Yes Hx Hypertension, Yes Hx Diabetes Based on the list above the patient has:: 1-2 risk factors - Troponin Troponin: </= normal limit - Score Heart Score - Total: 4 - ECG Intrepretation Comment:: 02/13/18 03:41 Paced - [place]: Normal - P and MI Prolonged MI Interval: 1st Degree Block(>20mils) ED Treatment Course - LABORATORY CBC & Chemistry Diagram: 02/13/18 02:30 02/13/18 02:30 Medical Decision Making - Medical Decision Making 82 year old male with history of afib, pacemaker placement, diabetes, and questionable history of hypercholesterolemia presenting with right arm paresthesias since waking up this morning that is relapsing, remitting, and travels from side to side across his upper chest/ neck. Denies any explicit chest pain or other symptoms. His EKG is paced and otherwise normal. Troponin negative and other labs demonstrating hematuria but otherwise normal. Given heart score of 4, will admit to tele obs for cardiac workup. Less likely TIA/ CVA given that there are no sensory deficits, motor deficits, and these paresthesias are not consistent. 02/13/18 03:59 *DC/Admit/Observation/Transfer Diagnosis at time of Disposition: Paresthesia - Discharge Dispostion Condition at time of disposition: Stable Decision to Admit order: Yes - Referrals Referrals: Perez Lino MD [Primary Care Provider] - - Patient Instructions - Post Discharge Activity
[2018-02-13] MEDS ORDERED: ASPIRIN 81 MG CHEWABLE TABLETS PO ONE (02:17)
--- NOTE | 2018-02-13 02:20 | PDOC ---
Attending Attestation - HPI HPI: 02/13/18 02:24 The patient is a 82 year old male, with a significant past medical history of hypertension, hyperlipidemia, atrial fibrillation s/p pacemaker placement, prostate CA s/p seed, who presents to the emergency department with, constant right shoulder numbness. As per patient, he woke up this morning with his symptoms. He believes he could have slept on his arm, however, he is unsure. He denies any recent fevers, chills, headache or dizziness. He denies any recent nausea, vomit, diarrhea or constipation. He denies any recent chest pain or shortness of breath. He denies any recent dysuria, frequency, urgency or hematuria. Allergies: NKA Social History: Nonsmoker. Denies EtOH use and recreational drug use. Primary Care Physician: Dr. Lino <Estelle Fernandez - Last Filed: 02/13/18 02:24> - Resident Resident Name: Isabela Vargas - ED Attending Attestation I have performed the following: I have examined & evaluated the patient, The case was reviewed & discussed with the resident, I agree w/resident's findings & plan, Exceptions are as noted - Physicial Exam PE: 02/13/18 04:00 *Physical Exam General Appearance: Yes: Appropriately Dressed. No: Apparent Distress, Intoxicated HEENT: positive: EOMI, RIVKA, Normal ENT Inspection, Normal Voice, TMs Normal, Pharynx Normal. negative: Pale Conjunctivae, Photophobia, Scleral Icterus (R), Scleral Icterus (L) Neck: positive: Trachea midline, Normal Thyroid, Supple. negative: Tender, Rigid, Carotid bruit, Stridor, Lymphadenopathy (R), Lymphadenopathy (L), Thyromegaly Respiratory/Chest: positive: Lungs Clear, Normal Breath Sounds. negative: Chest Tender, Respiratory Distress, Accessory Muscle Use, Labored Respiration, RES, Crackles, Rales, Rhonchi, Stridor, Wheezing, Dullness Cardiovascular: positive: Regular Rhythm, Regular Rate, S1, S2. negative: Edema , JVD, Murmur, Bradycardia, Tachycardia Vascular Pulses: Dorsalis-Pedis (R): 2+, Doralis-Pedis (L): 2+ Gastrointestinal/Abdominal: positive: Normal Bowel Sounds, Flat, Soft. negative : Tender, Organomegaly, Pulsatile Mass, Increased Bowel Sounds, Decreased BS, Distended, Guarding, Rebound, Hernia, Hepatomegaly, Spleenomegaly Lymphatic: negative: Adenopathy, Tenderness Musculoskeletal: positive: Normal Inspection. negative: CVA Tenderness, Decreased Range of Motion Extremity: positive: Normal Capillary Refill, Normal Inspection, Normal Range of Motion, Pelvis Stable. negative: Tender, Pedal Edema, Swelling, Erythema Integumentary: positive: Normal Color, Dry, Warm. 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 negative: EOM Palsy, Facial Droop, Sensory Deficit - Medical Decision Making 02/13/18 19:27 Pt admitted to hospital for further treatment and care <Ryan Fernandez - Last Filed: 02/13/18 19:28> Attestations - Attestations 02/13/18 02:25 Documentation prepared by Estelle Fernandez, acting as center medical director for Ryan Fernandez DO. <Estelle Fernandez - Last Filed: 02/13/18 02:24>
[2018-02-13] MEDS ORDERED: ASPIRIN 81 MG CHEWABLE TABLETS ONE (02:32)
[2018-02-13 02:36] LABS: BASO % 0.9 % (0-2.0); EOS % 9.4 % (0-4.5); HEMATOCRIT 42.1 % (35.4-49); HEMOGLOBIN 14.1 GM/dL (11.7-16.9); LYMPH % 16.5 % (8-40); MCH 30.2 pg (25.7-33.7); MCHC 33.5 g/dl (32.0-35.9); MEAN CELL VOLUME 90.1 fl (80-96); MEAN PLT VOLUME 6.7 fl (7.5-11.1); NEUT % 62.2 % (42.8-82.8); PLATELET COUNT 275 K/MM3 (134-434); RBC 4.67 M/mm3 (4.00-5.60); WHITE BLOOD COUNT 7.9 K/mm3 (4.0-10.0)
[2018-02-13 02:49] LABS: INR 1.71 (0.82-1.09); PROTHROMBIN TIME (PATIENT) 19.3 SEC (9.7-13.0)
[2018-02-13 03:03] LABS: ALBUMIN 3.8 g/dl (3.4-5.0); ANION GAP 9 (8-16); BILIRUBIN,TOTAL 0.5 mg/dL (0.2-1.0); BLOOD UREA NITROGEN 19 mg/dL (7-18); CALCIUM 8.6 mg/dL (8.5-10.1); CHLORIDE 96 mmol/L (98-107); CHOLESTEROL 131 mg/dL (50-200); CO2 25 mmol/L (21-32); CREATININE 0.9 mg/dL (0.7-1.3); GLUCOSE,RANDOM 123 mg/dL (74-106); MAGNESIUM 1.7 mg/dL (1.8-2.4); POTASSIUM 4.4 mmol/L (3.5-5.1); SGOT/AST 16 U/L (15-37); SGPT/ALT 19 U/L (12-78); SODIUM 130 mmol/L (136-145); TOT PROT 7.3 g/dl (6.4-8.2); TRIGLYCERIDES 102 mg/dL (35-160)
[2018-02-13 03:04] LABS: ALK PHOS 100 U/L (45-117); HDL CHOLESTEROL 56 mg/dL (40-60); N-TERMINAL BNP 238.38 pg/ml (5-450)
[2018-02-13 03:29] LABS: URINE APPEARANCE CLEAR; URINE BILIRUBIN NEGATIVE (<2.0 mg/dL); URINE COLOR STRAW; URINE GLUCOSE (UA) NEGATIVE (NEGATIVE); URINE KETONE TRACE (NEGATIVE); URINE LEUK ESTERASE NEGATIVE (NEGATIVE); URINE NITRITE NEGATIVE (NEGATIVE); URINE PROTEIN NEGATIVE (NEGATIVE); URINE UROBILINOGEN NEGATIVE mg/dL (0.2-1.0)
[2018-02-13 03:31] LABS: EPI CELLS RARE /HPF (FEW)
--- NOTE | 2018-02-13 04:59 | HP ---
CHIEF COMPLAINT: R shoulder numbness PCP: Dr. Perez Lino HISTORY OF PRESENT ILLNESS: 82 yo man with pmh of HTN, HLD, afib (PPM placement 8 months ago), prostate CA ( s/o brachytherapy 2002), who presents with R arm/shoulder numbness beginning this AM. 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 Pt states he may have slept on his arm overnight, but is unsure. Last stress test was "many years ago". 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 Cruz. He denies any recent fevers, chills, headache or dizziness. He denies any recent nausea, vomit, diarrhea or constipation. He denies any recent chest pain or shortness of breath. He denies any recent dysuria, frequency, urgency or hematuria. ER course was notable for: (1)ASA 162 mg given (2)Na 130, Mg 1.7, INR 1.71 (3)Heart Score of 4, negative trop x1, EKG with paced rhythm Recent Travel: None PAST MEDICAL HISTORY: Prostate CA (2003 brachytherapy) Afib DM2 HTN HLD PAST SURGICAL HISTORY: Cardiac cath Appendectomy Social History: Smoking: Denies Alcohol: Denies Drugs: Denies Family History: NC Allergies No Known Allergies Allergy (Verified 02/13/18 01:39) HOME MEDICATIONS: Home Medications Medication Instructions Recorded Clopidogrel Bisulfate [Plavix] 75 mg PO DAILY 02/13/18 Glyburide/Metformin HCl 2.5 each PO 02/13/18 [Glyburide-Metformin 5-500 mg] Lisinopril [Prinivil] 20 mg PO DAILY 02/13/18 Metoprolol Succinate [Toprol Xl -] 50 mg PO BID 02/13/18 Rivaroxaban [Xarelto -] 20 mg PO DAILY 02/13/18 Sitagliptin Phosphate [Januvia] 25 mg PO DAILY 02/13/18 Sotalol HCl [Sotalol AF] 120 mg PO BID 02/13/18 REVIEW OF SYSTEMS CONSTITUTIONAL: Absent: fever, chills, diaphoresis, generalized weakness, malaise, loss of appetite, weight change HEENT: Absent: rhinorrhea, nasal congestion, throat pain, throat swelling, difficulty swallowing, mouth swelling, ear pain, eye pain, visual changes CARDIOVASCULAR: Absent: chest pain, syncope, palpitations, irregular heart rate, lightheadedness , peripheral edema RESPIRATORY: Absent: cough, shortness of breath, dyspnea with exertion, orthopnea, wheezing, stridor, hemoptysis GASTROINTESTINAL: Absent: abdominal pain, abdominal distension, nausea, vomiting, diarrhea, constipation, melena, hematochezia GENITOURINARY: Absent: dysuria, frequency, urgency, hesitancy, hematuria, flank pain, genital pain MUSCULOSKELETAL: Absent: myalgia, arthralgia, joint swelling, back pain, neck pain SKIN: Absent: rash, itching, pallor HEMATOLOGIC/IMMUNOLOGIC: Absent: easy bleeding, easy bruising, lymphadenopathy, frequent infections ENDOCRINE: Absent: unexplained weight gain, unexplained weight loss, heat intolerance, cold intolerance NEUROLOGIC: +R shoulder/arm numbness Absent: headache, focal weakness or paresthesias, dizziness, unsteady gait, seizure, mental status changes, bladder or bowel incontinence PSYCHIATRIC: Absent: anxiety, depression, suicidal or homicidal ideation, hallucinations. PHYSICAL EXAMINATION Vital Signs - 24 hr 02/13/18 02/13/18 00:05 04:18 Temperature 98.3 F Pulse Rate 61 Pulse Rate [ 60 Left Radial] Respiratory 18 18 Rate Blood Pressure 166/84 Blood Pressure 141/81 [Left Arm] O2 Sat by Pulse 100 98 Oximetry (%) GENERAL: Elderly man, Awake, alert, and fully oriented, in no acute distress HEAD: Normal with no signs of trauma. EYES: Pupils equal, round and reactive to light, extraocular movements intact, sclera anicteric, conjunctiva clear. No lid lag. EARS, NOSE, THROAT: Ears normal, nares patent, oropharynx clear without exudates. Moist mucous membranes. NECK: Normal range of motion, supple without lymphadenopathy, JVD, or masses. LUNGS: Breath sounds equal, clear to auscultation bilaterally. No wheezes, and no crackles. No accessory muscle use. HEART: RRR, normal S1 and S2 without murmur, rub or gallop. ABDOMEN: Soft, nontender, not distended, normoactive bowel sounds, no guarding, no rebound, no masses. No hepatomegaly or splenomegaly. MUSCULOSKELETAL: Normal range of motion at all joints. No bony deformities or tenderness. No CVA tenderness. UPPER EXTREMITIES: 2+ pulses, warm, well-perfused. No cyanosis. No clubbing. No peripheral edema. LOWER EXTREMITIES: 2+ pulses, warm, well-perfused. No calf tenderness. No peripheral edema. NEUROLOGICAL: Cranial nerves II-XII intact. Normal speech. Normal gait. PSYCHIATRIC: Cooperative. Good eye contact. Appropriate mood and affect. SKIN: Warm, dry, normal turgor, no rashes or lesions noted, normal capillary refill. Laboratory Results - last 24 hr CBC, BMP 02/13/18 02:30 02/13/18 02:30 02/13/18 02/13/18 02/13/18 02:30 02:30 02:30 WBC 7.9 RBC 4.67 Hgb 14.1 Hct 42.1 MCV 90.1 MCH 30.2 MCHC 33.5 RDW 14.0 Plt Count 275 MPV 6.7 L Absolute Neuts (auto) 4.9 Neutrophils % 62.2 Lymphocytes % 16.5 Monocytes % 11.0 H Eosinophils % 9.4 H Basophils % 0.9 Nucleated RBC % 0 PT with INR 19.30 H INR 1.71 H D Sodium 130 L Potassium 4.4 Chloride 96 L Carbon Dioxide 25 Anion Gap 9 BUN 19 H D Creatinine 0.9 Creat Clearance w eGFR > 60 Random Glucose 123 H D Calcium 8.6 Magnesium 1.7 L Total Bilirubin 0.5 AST 16 ALT 19 Alkaline Phosphatase 100 Creatine Kinase 113 Troponin I < 0.02 B-Natriuretic Peptide 238.38 Total Protein 7.3 Albumin 3.8 Triglycerides 102 D Cholesterol 131 Total LDL Cholesterol 67 D HDL Cholesterol 56 Urine Color Urine Appearance Urine pH Ur Specific [place] Urine Protein Urine Glucose (UA) Urine Ketones Urine Blood Urine Nitrite Urine Bilirubin Urine Urobilinogen Ur Leukocyte Esterase Urine WBC (Auto) Urine RBC (Auto) Ur Epithelial Cells 02/13/18 03:00 WBC RBC Hgb Hct MCV MCH MCHC RDW Plt Count MPV Absolute Neuts (auto) Neutrophils % Lymphocytes % Monocytes % Eosinophils % Basophils % Nucleated RBC % PT with INR INR Sodium Potassium Chloride Carbon Dioxide Anion Gap BUN Creatinine Creat Clearance w eGFR Random Glucose Calcium Magnesium Total Bilirubin AST ALT Alkaline Phosphatase Creatine Kinase Troponin I B-Natriuretic Peptide Total Protein Albumin Triglycerides Cholesterol Total LDL Cholesterol HDL Cholesterol Urine Color Straw Urine Appearance Clear Urine pH 6.0 Ur Specific [place] 1.009 Urine Protein Negative Urine Glucose (UA) Negative Urine Ketones Trace H Urine Blood 1+ H Urine Nitrite Negative Urine Bilirubin Negative Urine Urobilinogen Negative Ur Leukocyte Esterase Negative Urine WBC (Auto) <1 Urine RBC (Auto) 3 Ur Epithelial Cells Rare No micro CXR reviewed - no acute pathology noted EKG reviewed ASSESSMENT/PLAN: 82 yo man with pmh of HTN, HLD, afib (PPM placement 8 months ago), prostate CA ( s/o brachytherapy 2002), who presents with R arm/shoulder numbness beginning this AM. #R arm numbness/tingling - Low risk of stroke given lack of FNDs, trops neg x1, no acute EKG changes, HEART score of 4 - cardiac monitoring - ASA, plavix daily - O2 support via NC as needed - Cardiology consult - Dr. Cruz - c/w home BB, BARRY-I, statin - tylenol for pain control prn - f/u 2nd trop. Trend trops #Hyponatremia - Na 130 - Daily BMPs - PO hydration #Afib - Noted on EKG - c/w home xarelto 20mg daily #HTN - Systolic 160s BP - c/w home lisinopril - vitals q4h #HLD - c/w home statin #DM2 - unknown last A1C. on metformin/glyburide - ISS - BGM q4h -A1c PPX Xarelto FEN PO hydration Daily lytes Sodium controlled diet Plan to be discussed with Dr. Chuck Gorman, PGY1 Hospitalist Screening - Colonoscopy Questionnaire Colonoscopy Questionnaire: Colonoscopy Questionnaire
[2018-02-13] MEDS ORDERED: ACETAMINOPHEN 325 MG TABLET (FP) PO PRN (05:58)
--- NOTE | 2018-02-13 06:17 | PN ---
Teaching Attending Note Name of Resident: Amadou Gorman ATTENDING PHYSICIAN STATEMENT I saw and evaluated the patient. I reviewed the resident's note and discussed the case with the resident. I agree with the resident's findings and plan as documented. SUBJECTIVE: Patient is an 82 year old man with PMH of HTN, HLD, afib s/p pacemaker placement (8 months prior)(on xarelto), prostate CA s/p seed implant who presents to the ED complaining of right shoulder and arm discomfort/numbness since this morning. He describes it as an "unusual" feeling. Patient states that he woke up with numbness and tingling in his right shoulder radiating down his arm. The tingling is not pleuritic but does radiate to his neck. Denies explicit chest pain, nausea, vomiting, diarrhea, constipation, fevers, chills, or other sick symptoms. His last stress test was "many years ago" and also had a cardiac cath a long time ago. He came to the ER in a cab. OBJECTIVE: Vital Signs Period Temp Pulse Resp BP Sys/Byrne Pulse Ox Last 24 Hr 98.3 F 60-61 18-18 141-166/81-84 98-100 HEENT: No Jaundice, eye redness or discharge, PERRLA, EOMI. Normocephalic, atraumatic. External ears are normal and his hearing is impaired. No nasal discharge. Neck: Supple, nontender. No palpable adenopathy or thyromegaly. No JVD Chest: Good effort. Clear to auscultation and percussion. Heart: Regular. No S3, rub or murmur Abdomen: Not distended, soft, nontender and no HSM. No rebound or guarding. Normoactive bowel sounds. Ext: No right shoulder or arm tenderness. No crepitus or limited ROM. Normal boat designer strength. Peripheral pulses intact. No leg edema. Skin: Warm and dry. No petechiae, rash or ecchymosis. Neuro: Alert. Oriented x3. CN 2-12 grossly intact. Sensation grossly intact in all four extremities and DTR are symmetric. Current Medications Generic Name Dose Route Start Last Admin Trade Name Freq PRN Reason Stop Dose Admin Acetaminophen 650 mg 02/13/18 05:58 Tylenol - PO Q4H PRN PAIN LEVEL 1-5 Clopidogrel Bisulfate 75 mg 02/13/18 10:00 Plavix - PO DAILY [facility] Insulin Aspart 0 vial 02/13/18 07:00 Novolog Vial Sliding Scale - SQ ACHS [facility] Protocol Lisinopril 20 mg 02/13/18 10:00 Prinivil PO DAILY [facility] Metoprolol Succinate 50 mg 02/13/18 10:00 Toprol Xl - PO BID [facility] Rivaroxaban 20 mg 02/13/18 10:00 Xarelto - PO DAILY [facility] Home Medications Medication Instructions Recorded Clopidogrel Bisulfate [Plavix] 75 mg PO DAILY 02/13/18 Glyburide/Metformin HCl 2.5 each PO 02/13/18 [Glyburide-Metformin 5-500 mg] Lisinopril [Prinivil] 20 mg PO DAILY 02/13/18 Metoprolol Succinate [Toprol Xl -] 50 mg PO BID 02/13/18 Rivaroxaban [Xarelto -] 20 mg PO DAILY 02/13/18 Sitagliptin Phosphate [Januvia] 25 mg PO DAILY 02/13/18 Sotalol HCl [Sotalol AF] 120 mg PO BID 02/13/18 Abnormal Lab Results 02/13/18 02/13/18 02/13/18 02:30 02:30 02:30 MPV 6.7 L Monocytes % 11.0 H Eosinophils % 9.4 H PT with INR 19.30 H INR 1.71 H D Sodium 130 L Chloride 96 L BUN 19 H D Random Glucose 123 H D Magnesium 1.7 L Urine Ketones Urine Blood 02/13/18 03:00 MPV Monocytes % Eosinophils % PT with INR INR Sodium Chloride BUN Random Glucose Magnesium Urine Ketones Trace H Urine Blood 1+ H ASSESSMENT AND PLAN: 1. Right arm discomfort - Though atypical for ACS, will admit him as an observation case to telemetry to rule out ACS because he has risk factors. His EKG dose not show any significant ST-T changes and trponin is not elevated. Will get an ECHO. If his symptoms persist will get outpatient C-spine MRI to rule out cervical radiculopathy. CXR shows no acute changes. 2. Hyponatremia - Mild and chronic. Check TFT, urine osmolarity and sodium and limit free water intake. 3. Hypomagnesmia - Will give 2 gm IV MgSO4. 4. DVT prophylaxis - On Xarelto 5. Advance directives - Full code
[2018-02-13] MEDS ORDERED: MAGNESIUM SULF 50% (8.12 MEQ/2 ML-1 GM VIAL) IVPB ONE (06:21)
[2018-02-13] MEDS ORDERED: MAGNESIUM SULF 50% (8.12 MEQ/2 ML-1 GM VIAL) ONE (06:22)
[2018-02-13 07:30] LABS: BASO % 0.9 % (0-2.0); EOS % 9.4 % (0-4.5); HEMATOCRIT 41.6 % (35.4-49); HEMOGLOBIN 14.1 GM/dL (11.7-16.9); LYMPH % 22.9 % (8-40); MCH 30.4 pg (25.7-33.7); MCHC 33.9 g/dl (32.0-35.9); MEAN CELL VOLUME 89.7 fl (80-96); MEAN PLT VOLUME 6.6 fl (7.5-11.1); MONO % 12.1 % (3.8-10.2); NEUT % 54.7 % (42.8-82.8); PLATELET COUNT 262 K/MM3 (134-434); RBC 4.64 M/mm3 (4.00-5.60); RDW 14.1 % (11.9-15.9); WHITE BLOOD COUNT 6.4 K/mm3 (4.0-10.0)
[2018-02-13 07:50] LABS: ALBUMIN 3.8 g/dl (3.4-5.0); ANION GAP 7 (8-16); BLOOD UREA NITROGEN 18 mg/dL (7-18); CALCIUM 8.7 mg/dL (8.5-10.1); CHLORIDE 95 mmol/L (98-107); CO2 28 mmol/L (21-32); CREATININE 0.9 mg/dL (0.7-1.3); GLUCOSE,RANDOM 121 mg/dL (74-106); POTASSIUM 4.3 mmol/L (3.5-5.1); SGOT/AST 13 U/L (15-37); SGPT/ALT 18 U/L (12-78); SODIUM 130 mmol/L (136-145)
[2018-02-13] MEDS: INSULIN SLIDING SCALE (NOVOLOG) 1 VIAL SQ SCH ×2 (07:53→12:03)
[2018-02-13 07:54] LABS: ALK PHOS 94 U/L (45-117); BILIRUBIN,TOTAL 0.6 mg/dL (0.2-1.0); TOT PROT 7.2 g/dl (6.4-8.2)
[2018-02-13 08:29] LABS: INR 1.38 (0.82-1.09); PROTHROMBIN TIME (PATIENT) 15.6 SEC (9.7-13.0)
[2018-02-13 08:32] LABS: ACTIVATED PTT 36.7 SECONDS (25.2-36.5)
[2018-02-13] MEDS ORDERED: CLOPIDOGREL BISULFATE 75 MG TABLET (FP) PO SCH (10:00)
[2018-02-13] MEDS ORDERED: LISINOPRIL 20 MG TABLET (FP) PO SCH (10:00)
[2018-02-13] MEDS ORDERED: LISINOPRIL 20 MG TABLET (FP) ONE (10:25)
[2018-02-13] MEDS ORDERED: CLOPIDOGREL BISULFATE 75 MG TABLET (FP) ONE (10:25)
[2018-02-13] MEDS ORDERED: INSULIN (NOVOLOG) ASPART 100 UNITS/ML 10ML VIAL ONE (12:05)
--- NOTE | 2018-02-13 13:26 | PN ---
Teaching Attending Note Name of Resident: Kerry Colby ATTENDING PHYSICIAN STATEMENT I saw and evaluated the patient. I reviewed the resident's note and discussed the case with the resident. I agree with the resident's findings and plan as documented. SUBJECTIVE: No fever or chills, no abd pain , nO CP , no weakness . no TOMAS . he reports parasthesia in LUE , that 's also in LUE some times. he feels this sensation coming form his neck down . has numbness in both feet. he had that sensation before, for which he had xray of his neck .. and was told he had arthritis . he rpeorts being compliant with his xarelto OBJECTIVE: NAD Cv ; RRR, noMRG Lungs: CTAB ext ; no edema Neuro : EOMi, round equal pupils reactive to light. no facial droop, tongue nad uvula at mid line.srength 5/5 in upper and lower ext proximally and distally. sensation to light touch NL. reflexes 2+ biceps . Knee jerk 3+ b/l ASSESSMENT AND PLAN: 82 y/o man with h/o HTN, HLD, DM , afib s/p PPM, and prostate CA s/p seed implant who presented with RUE parasthesia . 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 unlikely TIA/ stroke as on xarelto and NL neuro exam. no evidence of Acs : EKG wiht LAD and sinus rythm. Nl trop. no typical hx and sx f/u as out pt with neuro . might need C spine MRI 2- H/o A fib: Cont xarelto , BB and sotalol 3- DM : cont po meds 4- on plavix , confirmed with his pharmacies. ? cAd with stents f/u with card dc home
[2018-02-13 15:00] VITALS: BP 128/74; PULSE 64; TEMP 98.6
--- NOTE | 2018-02-13 15:02 | EKG ---
Test Reason : Blood Pressure : / mmHG Vent. Rate : 060 BPM Atrial Rate : 060 BPM P-R Int : 276 ms QRS Dur : 094 ms QT Int : 454 ms P-R-T Axes : 000 -15 037 degrees QTc Int : 454 ms Atrial-paced rhythm with prolonged AV conduction ABNORMAL ECG Confirmed by MD Sergo, Nahid ([id number]) on 02/13/2018 3:02:38 PM Referred By: Confirmed By:Nahid Trotter MD
[2018-02-13] MEDS ORDERED: RIVAROXABAN 20 MG TABLET PO SCH (18:00)
--- NOTE | 2018-02-13 20:19 | DS ---
Physical Exam: SUBJECTIVE: Patient seen and examined at bedside. Explains that his RUE numbness is intermittent and a/w a similar lack of sensation in his LUE, and L ankle. Pt able to ambulate without issues, appears comfortable. Denies TOMAS, fever , chest pain or pressure, slurring of speech, or changes in urinary or bowel function. OBJECTIVE: Vital Signs Period Temp Pulse Resp BP Sys/Byrne Pulse Ox Last 24 Hr 98.0 F-98.6 F 60-64 18-18 128-166/74-85 96-100 PHYSICAL EXAM GENERAL: The patient is sitting up in bed. awake, alert, and fully oriented, in no acute distress. HEAD: Normal with no signs of trauma. EYES: PERRL, extraocular movements intact, sclera anicteric, conjunctiva clear. ENT: Ears normal, nares patent, oropharynx clear without exudates, moist mucous membranes. NECK: Trachea midline, supple. Without tenderness to palpation LUNGS: Breath sounds equal, clear to auscultation bilaterally, no wheezes, no crackles, no accessory muscle use. HEART: Regular rate and rhythm, S1, S2 without murmur, rub or gallop. ABDOMEN: Soft, nontender, nondistended, normoactive bowel sounds, no guarding, no rebound, no hepatosplenomegaly EXTREMITIES: 2+ pt pulses, warm, well-perfused, no edema. NEUROLOGICAL: Cranial nerves II through XII grossly intact. 5/5 motor strength in upper and lower extremities, with preserved sensation. AAOx3. cerebellar fnc intact. no facial asymmetry, uvula midline. PSYCH: Normal mood, normal affect. SKIN: Warm, dry, normal turgor LABS 02/13/18 02/13/18 02/13/18 02:30 02:30 03:00 WBC 7.9 Hgb 14.1 Hct 42.1 Plt Count 275 Sodium 130 L Potassium 4.4 Chloride 96 L BUN 19 H D Creatinine 0.9 Random Glucose 123 H D Troponin I < 0.02 Triglycerides 102 D Cholesterol 131 Total LDL Cholesterol 67 D HDL Cholesterol 56 Urine Color Straw Urine pH 6.0 Urine Protein Negative Urine Glucose (UA) Negative Urine Ketones Trace H Urine Blood 1+ H Urine Nitrite Negative Urine Bilirubin Negative Urine Urobilinogen Negative Ur Leukocyte Esterase Negative 02/13/18 02/13/18 07:10 07:10 WBC 6.4 Hgb 14.1 Hct 41.6 Plt Count 262 Sodium 130 L Potassium 4.3 Chloride 95 L BUN 18 Creatinine 0.9 Random Glucose 121 H Urine Protein Imaging 02/13/18: CXR: no active pulmonary dz 02/13/18: EKG: atrial paced rhythm with prolonged AV conduction. MD 276 ms, Qtc 454ms HOSPITAL COURSE: Date of Admission:02/13/18 Date of Discharge: 02/13/18 Admit diagnosis: R arm numbness/tingling 82 y/o M with PMH HTN, HLD, afib (PPM placement 8 months ago d/t bradycardia), prostate CA (s/o brachytherapy 2002), who presents with R arm/shoulder numbness beginning this AM. Pt was in his USOH when he woke up this AM with persistent R shoulder numbness with radiation to R arm and neck . Pt states he may have slept on his arm overnight, but is unsure. Last stress test was "many years ago ". His nursing clinical director is Dr. Cruz. Pt admitted for R arm numbness/tingling. Pt examined thoroughly and ACS r/o as trop (-) and without c/o chest pain or pressure. Pt, too, states that his sx do not seem similar to any past cardiac sx. Hx not concerning for stroke as sensation intact, without facial asymmetry, or focal neurological deficits. It is possible sx are related to degenerative arthritic changes or impinged nerves. Recommended f/u with PCP, neurologist and nursing clinical director in 1 week for further outpatient workup. May benefit from shoulder MRI. Explained to pt, questions answered. Minutes to complete discharge: 40 Discharge Summary Reason For Visit: PARESTHESIA Current Active Problems Paresthesia (Acute) Condition: Improved - Instructions Diet, Activity, Other Instructions: You were in the hospital for numbness in your right shoulder and arm. While you were here, you had cardiac testing that did not show any abnormalities. you may have a pinched nerve from arthritis in your neck. Your visit You were seen by the medicine team. Medications You may continue your home medications. Follow-up Please follow up in 1 week with the following doctors: -Dr. Lino, primary care physician : you may need an MRI of your shoulder. This can be done as an outpatient. Please discuss this with your primary physician. -Dr. Mascitelli, your nursing clinical director - Dr. Gallardo form neurology to evaluate your arm symptoms If you develop chest pain, or shortness of breath, please go to the hospital. You will need an MRI of your neck to rule out disk herniation and arthritis. We hope you feel better soon. Referrals: Christian Gallardo MD [Staff Physician] - 1 Week Perez Lino MD [Primary Care Provider] - 1 Week Colt Cruz MD [Staff Physician] - 1 Week Disposition: HOME - Home Medications Comprehensive Discharge Medication List: Ambulatory Orders Clopidogrel Bisulfate [Plavix] 75 mg PO DAILY 02/13/18 Glyburide/Metformin HCl [Glyburide-Metformin 5-500 mg] 2.5 each PO ASDIR Lisinopril [Prinivil] 20 mg PO DAILY 02/13/18 Metoprolol Succinate [Toprol XL -] 50 mg PO BID 02/13/18 Rivaroxaban [Xarelto -] 20 mg PO DAILY 02/13/18 Sitagliptin Phosphate [Januvia] 25 mg PO DAILY 02/13/18 Sotalol HCl [Sotalol AF] 120 mg PO BID 02/13/18 This patient is new to me today: Yes Date on this admission: 02/13/18 Emergency Visit: No Critical Care patient: No - Discharge Referral Referred to [facility] No
== END 2018-02-13 14:58 | disposition home or self-care (01) ==
LOC: JER 23:56 → JERBED 02-13 04:03 → UNDOADMOB 02-13 04:17 → JERBED 02-13 04:17
PROVIDERS: ADMIT Internal Medicine; ATTEND Internal Medicine
PROC: 3E033GC Introduction of Other Therapeutic Substance into Peripheral Vein, Percutaneous Approach (ICD-10-PCS; principal; 2018-02-13)
PROC: 3E013VG Introduction of Insulin into Subcutaneous Tissue, Percutaneous Approach (ICD-10-PCS; 2018-02-13)
DX: R20.2 Paresthesia of skin (principal); E87.1 Hypo-osmolality and hyponatremia; E83.42 Hypomagnesemia; I10 Essential (primary) hypertension; I48.91 Unspecified atrial fibrillation; E78.5 Hyperlipidemia, unspecified; E11.9 Type 2 diabetes mellitus without complications; Z85.46 Personal history of malignant neoplasm of prostate; Z79.01 Long term (current) use of anticoagulants; Z92.3 Personal history of irradiation; Z95.0 Presence of cardiac pacemaker; Z79.84 Long term (current) use of oral hypoglycemic drugs
CPT/HCPCS: 36415; 71046-TC-FY; 80053; 80061; 81003; 81015; 82550; 82962; 83721; 83735; 83880; 84100; 84484; 85025; 85610; 85730; 93005; 93010; 96372; 96374; 99285-25; G0378

== ENCOUNTER 2018-12-11 14:30 | Emergency (ER) | payer BC ==
[2018-12-11 14:49] VITALS: BMI 22.6
--- NOTE | 2018-12-11 14:51 | PDOC ---
Rapid Medical Evaluation Chief Complaint: Headache Time Seen by Provider: 12/11/18 14:44 Medical Evaluation: Allergies Allergy/AdvReac Type Severity Reaction Status Date / Time No Known Allergies Allergy Verified 02/13/18 01:39 12/11/18 14:45 s/p fall two weeks ago fell to the right , c/o head trauma now right hip pain , neck pain and headaches, patient is currently on plavix and aspirin. Pe: patient alert ox3. able to weight bear. A: head trauma P: head , cervical spine hip xray patient to the er for further management of care. Discharge Disposition - Diagnosis Headache Qualifiers: Headache type: unspecified Headache chronicity pattern: acute headache Intractability: not intractable Qualified Code(s): R51 - Headache Hip pain Qualifiers: Laterality: right Qualified Code(s): M25.551 - Pain in right hip - Referrals - Patient Instructions - Post Discharge Activity
--- NOTE | 2018-12-11 16:40 | PDOC ---
Attending Attestation - Resident Resident Name: Fern Recinos - ED Attending Attestation I have performed the following: I have examined & evaluated the patient, The case was reviewed & discussed with the resident, I agree w/resident's findings & plan, Exceptions are as noted - HPI HPI: 83 yo M history osteoarthritis, ASA/plavix use presents 2 weeks s/p mechanical fall. He states that his R knee buckled under him and he fell, hitting the right side of his head. No LOC. He did not seek evaluation at the time. He presents today because of a strange feeling in his neck, R hip. He expressed concern he may have injured himself in the fall. He states he has an appointment with Dr. Vazquez to address his R knee. - Physicial Exam PE: GENERAL: Awake, alert, and fully oriented, in no acute distress HEAD: No signs of trauma EYES: PERRLA, EOMI, sclera anicteric, conjunctiva clear ENT: Auricles normal inspection, hearing grossly normal, nares patent, oropharynx clear without exudates. Moist mucosa NECK: Normal ROM, supple, no lymphadenopathy, JVD, or masses LUNGS: Breath sounds equal, clear to auscultation bilaterally. No wheezes, and no crackles HEART: Regular rate and rhythm, normal S1 and S2, no murmurs, rubs or gallops ABDOMEN: Soft, nontender, normoactive bowel sounds. No guarding, no rebound. No masses EXTREMITIES: Normal range of motion, no edema. No clubbing or cyanosis. No cords, erythema, or tenderness NEUROLOGICAL: Cranial nerves II through XII grossly intact. Normal speech, normal gait. Motor and sensation intact SKIN: Warm, Dry, normal turgor, no rashes or lesions noted. - Medical Decision Making CTH and c-spine no acute findings. XR wnl. Knee exam in ED wnl, no ligamentous instability. Stable for DC home with ortho follow-up for knee as scheduled.
--- NOTE | 2018-12-11 16:44 | PDOC ---
History of Present Illness - General Chief Complaint: Headache Stated Complaint: RT. KNEE PAIN Time Seen by Provider: 12/11/18 14:44 History Source: Patient Exam Limitations: No Limitations - History of Present Illness Initial Comments: 12/11/18 16:37 Pt is an 83yo M with PMH of Afib (PPM), CAD (on Plavix and ASA), DM, HTN, HLD, Prostate Ca s/p seed presenting to ED with complaints of neck stiffness and pain s/p fall 2 weeks ago. Pt states he was walking and felt his R knee stiffen and he fell. His head hit head on a portable electric heater. He did not lose consciousness and was able to get up afterward. Pt comes in today because he was worried about "something broken" in his neck. Endorses slight headache, R hip pain and neck pain. Denies numbness/tingling, weakness, changes in vision, dizziness, lightheadedness, chest pain, sob, abdominal pain, n/v/d, difficulty ambulating, syncope. 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 Past History - Past Medical History Allergies/Adverse Reactions: Allergies Allergy/AdvReac Type Severity Reaction Status Date / Time No Known Allergies Allergy Verified 02/13/18 01:39 Home Medications: Ambulatory Orders Clopidogrel Bisulfate [Plavix] 75 mg PO DAILY 02/13/18 Glyburide/Metformin HCl [Glyburide-Metformin 5-500 mg] 2.5 each PO ASDIR Lisinopril [Prinivil] 20 mg PO DAILY 02/13/18 Metoprolol Succinate [Toprol XL -] 50 mg PO BID 02/13/18 Rivaroxaban [Xarelto -] 20 mg PO DAILY 02/13/18 Sitagliptin Phosphate [Januvia] 25 mg PO DAILY 02/13/18 Sotalol HCl [Sotalol AF] 120 mg PO BID 02/13/18 Anemia: No Asthma: No Cancer: Yes (PROSTATE CA '03 - SEED IMPLANT) Cardiac Disorders: Yes (A-fib) CVA: No COPD: No CHF: No Dementia: No Diabetes: Yes GI Disorders: No Disorders: No HTN: Yes Hypercholesterolemia: Yes Liver Disease: No Seizures: No Thyroid Disease: No - Surgical History Abdominal Surgery: No Appendectomy: Yes Cardiac Surgery: Yes (CARDIAC CATH; ABLATION) Cholecystectomy: No Lung Surgery: No Neurologic Surgery: No - Immunization History Immunization Up to Date: No - Suicide/Smoking/Psychosocial Hx Smoking History: Never smoked Have you smoked in the past 12 months: No Information on smoking cessation initiated: No Hx Alcohol Use: No Drug/Substance Use Hx: No Substance Use Type: None Hx Substance Use Treatment: No Review of Systems - Review of Systems Constitutional: No: Chills, Fever, Weakness HEENTM: No: Eye Pain, Blurred Vision, Double Vision Respiratory: No: Cough, Shortness of Breath Cardiac (ROS): No: Chest Pain, Lightheadedness, Palpitations, Syncope ABD/GI: No: Constipated, Diarrhea, Nausea, Vomiting, Abdominal cramping : No: Burning, Dysuria Musculoskeletal: Yes: Neck Pain. No: Back Pain, Joint Pain, Muscle Pain Integumentary: No: Symptoms Reported Neurological: Yes: See HPI, Headache. No: Numbness, Tingling, Tremors, Weakness *Physical Exam - Vital Signs Last Vital Signs Temp Pulse Resp BP Pulse Ox 97.7 F 67 20 179/94 H 97 12/11/18 14:45 12/11/18 14:45 12/11/18 14:45 12/11/18 14:45 12/11/18 14:45 - Physical Exam General Appearance: Yes: Nourished, Appropriately Dressed. No: Apparent Distress HEENT: positive: EOMI, RIVKA, Normal ENT Inspection Neck: positive: Trachea midline, Supple. negative: Tender, Carotid bruit, Decreased range of motion, Lymphadenopathy (R), Lymphadenopathy (L) Respiratory/Chest: positive: Lungs Clear, Normal Breath Sounds. negative: Crackles Cardiovascular: positive: Regular Rhythm, Regular Rate, S1, S2. negative: Edema , JVD, Murmur Vascular Pulses: Carotid (R): 2+, Carotid (L): 2+, Dorsalis-Pedis (R): 2+, Doralis-Pedis (L): 2+ Gastrointestinal/Abdominal: positive: Normal Bowel Sounds, Soft. negative: Tender Musculoskeletal: positive: Other (No knee effusion or tenderness, negative lachmans). negative: CVA Tenderness, Muscle Spasm, Vertebral Tenderness Extremity: positive: Normal Capillary Refill, Pelvis Stable. negative: Pedal Edema, Swelling Integumentary: positive: Normal Color, Dry, Warm, Other (lipoma on back) Neurologic: positive: slip dumper II-XII NML intact, Fully Oriented, Alert, Normal Mood/ Affect, Normal Response, Motor Strength 5/5 Medical Decision Making - Medical Decision Making 12/11/18 23:21 Pt is an 83yo M with PMH of Afib (PPM), CAD (on Plavix and ASA), DM, HTN, HLD, Prostate Ca s/p seed presenting to ED with complaints of neck stiffness and pain s/p fall 2 weeks ago. Pt states he was walking and felt his R knee stiffen and he fell. His head hit head on a portable electric heater. He did not lose consciousness and was able to get up afterward. Pt comes in today because he was worried about "something broken" in his neck. Endorses slight headache, R hip pain and neck pain. Denies numbness/tingling, weakness, changes in vision, dizziness, lightheadedness, chest pain, sob, abdominal pain, n/v/d, difficulty ambulating, syncope. Vitals: slightly hypertensive PE: no spinal tenderness, normal neurological exam, no knee effusion or joint laxity. Ddx includes but not limited to intracranial bleed, fractures -mechanical fall, pt able to recall event. pt ambulatory since fall. Ct head and cpsine and hip xray ordered by [facility] ct head and cspine negative for fractures and bleed. arthritic changes xray: arthritic changes. Pt refusing tylenol for pain. pt stable for dc home, ambulatory and no acute pathology. has pmd f/u. given ortho referral. pt agrees to plan and verbalizes understanding. given return precautions. *DC/Admit/Observation/Transfer Diagnosis at time of Disposition: Neck pain Headache Qualifiers: Headache type: unspecified Headache chronicity pattern: acute headache Intractability: not intractable Qualified Code(s): R51 - Headache Hip pain Qualifiers: Laterality: right Qualified Code(s): M25.551 - Pain in right hip - Discharge Dispostion Disposition: HOME Condition at time of disposition: Good Decision to Admit order: No - Referrals Referrals: Mikael Vazquez MD [Staff Physician] - - Patient Instructions Printed Discharge Instructions: DI for Knee Pain, DI for Neck Pain Additional Instructions: You were seen in the emergency room today for neck pain after falling. The CT scan of your head and neck do not show signs of a fracture or bleed. Your hip xray does not show any fractures. I recommend taking Tylenol for the pain as needed. You can see Dr. Granger or Dr. Vazquez for the concerns about your knee. I would also recommend making an appointment with Dr. Lino this week. Come back to the emergency room if you have numbness/tingling, have difficulty walking, have worsening headaches, you pass out or if any new concerning symptom develops. Thank you - Post Discharge Activity
[2018-12-11 17:35] VITALS: BP 140/85; PULSE 69; TEMP 97.8
== END 2018-12-11 17:36 | disposition home or self-care (01) ==
LOC: JER 14:30
DX: S09.8XXA Other specified injuries of head, initial encounter (principal); R51 Headache; M54.2 Cervicalgia; M25.551 Pain in right hip; W01.198A Fall on same level from slipping, tripping and stumbling with subsequent striking against other object, initial encounter; Y93.89 Activity, other specified; Y92.038 Other place in apartment as the place of occurrence of the external cause; Y99.8 Other external cause status; I25.10 Atherosclerotic heart disease of native coronary artery without angina pectoris; I10 Essential (primary) hypertension; Z95.0 Presence of cardiac pacemaker; I48.91 Unspecified atrial fibrillation; Z79.01 Long term (current) use of anticoagulants; Z79.82 Long term (current) use of aspirin; E11.9 Type 2 diabetes mellitus without complications; Z79.84 Long term (current) use of oral hypoglycemic drugs; E78.5 Hyperlipidemia, unspecified; Z85.46 Personal history of malignant neoplasm of prostate
CPT/HCPCS: 70450-TC; 72125-TC; 73523-TC-FY; 99282-25

== ENCOUNTER 2023-06-09 15:32 | Emergency (ER) | payer BC ==
[2023-06-09 15:47] VITALS: BP 116/72; PULSE 67; RESP 16; TEMP 98.1; BMI 22.1
[2023-06-09 18:58] LABS: POTASSIUM 5.6 mmol/L (3.5-5.1)
[2023-06-09 19:00] LABS: CALCIUM 9.1 mg/dL (8.5-10.1)
[2023-06-09 19:01] LABS: ALBUMIN 4.1 g/dl (3.4-5.0); BLOOD UREA NITROGEN 35.6 mg/dL (7-18)
[2023-06-09 19:04] LABS: CREATININE 1.1 mg/dL (0.55-1.3)
[2023-06-09 19:05] LABS: BILIRUBIN,TOTAL 0.8 mg/dL (0.2-1)
[2023-06-09 19:07] LABS: TOT PROT 7.7 g/dl (6.4-8.2)
[2023-06-09 19:12] LABS: BASO % 0.8 % (0-2.0); EOS % 6.1 % (0-4.5); HEMATOCRIT 41.8 % (35.4-49); HEMOGLOBIN 14.3 GM/dL (11.7-16.9); LYMPH % 9.4 % (8-40); MCH 30.3 pg (25.7-33.7); MCHC 34.3 g/dl (32.0-35.9); MEAN CELL VOLUME 88.5 fl (80-96); MONO % 10.1 % (3.8-10.2); NEUT % 73.6 % (42.8-82.8); PLATELET COUNT 314 10^3/uL (134-434); RBC 4.73 M/mm3 (4.00-5.60); RDW 14.6 % (11.9-15.9); WHITE BLOOD COUNT 11.5 K/mm3 (4.0-10.0)
[2023-06-09 19:19] LABS: INR 1.35 (0.83-1.09); PROTHROMBIN TIME (PATIENT) 15.6 SEC (9.7-13.0)
[2023-06-09 19:22] LABS: ACTIVATED PTT 35.7 SECONDS (25.2-36.5)
[2023-06-09 21:28] LABS: CALCIUM 8.6 mg/dL (8.5-10.1)
[2023-06-09 21:32] LABS: BLOOD UREA NITROGEN 39.4 mg/dL (7-18); CREATININE 1.4 mg/dL (0.55-1.3)
== END 2023-06-09 21:47 | disposition home or self-care (01) ==
LOC: JER 15:32
DX: S40.022A Contusion of left upper arm, initial encounter (principal); M79.602 Pain in left arm; X50.1XXA Overexertion from prolonged static or awkward postures, initial encounter
CPT/HCPCS: 36415; 73030-TC-LT-FY; 73060-TC-LT-FY; 73070-TC-LT-FY; 73090-TC-LT-FY; 76882-TC-RT-FY; 80048; 80053; 85025; 85610; 85730; 99285-25